=== PATIENT | female | born 2005 | race Caucasian/White ===

== ENCOUNTER 2023-10-19 17:43 | Emergency (ER) | payer OTHER ==
--- NOTE | 2023-10-19 18:44 | ED ---
Fever HPI - General Chief Complaint: Abdominal Pain Stated Complaint: Headache,Nausea,Body ache Time Seen by Provider: 10/19/23 18:11 Source: patient, RN notes reviewed, old records reviewed Mode of arrival: ambulatory Limitations: no limitations - History of Present Illness Initial Comments: This is a 18-year-old female to the ER for evaluation patient has significant swollen throat lymphadenopathy throat pain back pain body aches body pain abdominal pain. She has multiple visits both the primary care and urgent care with viral testing which is all been negative. Patient was contacted for influenza which was negative COVID which is negative RSV which is negative and mono which was negative MD Complaint: fever, malaise, weakness -: days(s) Temperature Source: subjective Context: sick contacts, multiple patients with similar symptoms Associated Symptoms: chills, rigors, myalgias Treatments Prior to Arrival: none - Related Data Previous Rx's Medication Instructions Recorded Amoxic-Pot Clav 875-125Mg 1 tab PO Q12HR #20 tablet 10/19/23 [Augmentin 875-125] Allergies Allergy/AdvReac Type Severity Reaction Status Date / Time No Known Allergies Allergy Verified 10/19/23 18:02 Review of Systems ROS Statement: Those systems with pertinent positive or pertinent negative responses have been documented in the HPI. ROS Other: All systems not noted in ROS Statement are negative. Past Medical History Past Medical History: No Reported History History of Any Multi-Drug Resistant Organisms: None Reported Past Surgical History: No Surgical Hx Reported Smoking Status: Never smoker Past Alcohol Use History: None Reported Past Drug Use History: None Reported General Exam Limitations: no limitations General appearance: alert, in no apparent distress Head exam: Present: atraumatic, normocephalic, normal inspection Eye exam: Present: normal appearance, PERRL, EOMI. Absent: scleral icterus, conjunctival injection, periorbital swelling ENT exam: Present: normal exam, mucous membranes moist Neck exam: Present: normal inspection. Absent: tenderness, meningismus, lymphadenopathy Respiratory exam: Present: normal lung sounds bilaterally. Absent: respiratory distress, wheezes, rales, rhonchi, stridor Cardiovascular Exam: Present: regular rate, normal rhythm, normal heart sounds. Absent: systolic murmur, diastolic murmur, rubs, gallop, clicks GI/Abdominal exam: Present: soft, normal bowel sounds. Absent: distended, tenderness, guarding, rebound, rigid Extremities exam: Present: normal inspection, full ROM, normal capillary refill. Absent: tenderness, pedal edema, joint swelling, calf tenderness Back exam: Present: normal inspection Neurological exam: Present: alert, oriented X3, CN II-XII intact Psychiatric exam: Present: normal affect, normal mood Skin exam: Present: warm, dry, intact, normal color. Absent: rash Course Vital Signs 10/19/23 10/19/23 10/19/23 17:58 19:24 20:48 Temperature 103 F H 102.9 F H 99.2 F Pulse Rate 121 H 109 H Respiratory 18 18 Rate Blood Pressure 125/58 122/79 O2 Sat by Pulse 97 100 Oximetry 10/19/23 10/20/23 10/20/23 21:00 00:00 00:23 Temperature Pulse Rate 85 80 84 Respiratory 16 14 16 Rate Blood Pressure 120/72 106/62 114/57 O2 Sat by Pulse 100 99 95 Oximetry - Reevaluation(s) Reevaluation #1: 10/19/23 23:48 Medical records reviewed Reevaluation #2: 10/19/23 23:48 Patient symptoms improved Reevaluation #3: 10/19/23 23:48 Patient informed of results and questions answered Reevaluation #4: Was pt. sent in by a medical professional or institution ([facility] Soto, TEST LEAD, urgent care, hospital, or assisted...) When possible be specific @ -no Did you speak to anyone other than the patient for history (EMS, parent, family, police, friend...)? What history was obtained from this source @ -no Did you review nursing and triage notes (agree or disagree)? Why? @ -agree Are old charts reviewed (outside hosp., previous admission, EMS record, old EKG, old radiological studies, urgent care reports/EKG's, assisted records)? Rep ort findings @ -yes Differential Diagnosis (chest pain, altered mental status, abdominal pain women, abdominal pain men, vaginal bleeding, weakness, fever, dyspnea, syncope, headache, dizziness, GI bleed, back pain, seizure, CVA, palpatations, mental health, musculoskeletal)? @ -prior EKG interpreted by me (3pts min.). @ -yes X-rays interpreted by me (1pt min.). @ -yes negative for acute disease CT interpreted by me (1pt min.). @ -Yes negative for acute disease U/S interpreted by me (1pt. min.). @ -no What testing was considered but not performed or refused? (CT, X-rays, U/S, labs)? Why? @ -none What meds were considered but not given or refused? Why? @ -none Did you discuss the management of the patient with other professionals (professionals i.e. Dr., PA, TEST LEAD, lab, RT, psych nurse, social work supervisor, music industry intern, teacher, parole hearing officer, showcase maker)? Give summary @ -no Was smoking cessation discussed for >3mins.? @ -no Was critical care preformed (if so, how long)? @ -no Were there social determinants of health that impacted care today? How? (Homelessness, low income, unemployed, alcoholism, drug addiction, transportation, low edu. Level, literacy, decrease access to med. care, skilled nursing, rehab)? @ -none Was there de-escalation of care discussed even if they declined (Discuss DNR or withdrawal of care, Hospice)? DNR status @ -no What co-morbidities impacted this encounter? (DM, HTN, Smoking, COPD, CAD, Cancer, CVA, ARF, Chemo, Hep., AIDS, mental health diagnosis, sleep apnea, morbid obesity)? @ -none Was patient admitted / discharged? Hospital course, mention meds given and route, prescriptions, significant lab abnormalities, going to OR and other pertinent info. @ - 18 female to the ER for evaluation of fever with severe lymphadenopathy, persistent fever with abdominal pain. Patient does have improved symptoms here in the ER with no travel or sick contacts. Patient was placed on antibiotics and can be discharged home Discharge Undiagnosed new problem with uncertain prognosis? @ -no Drug Therapy requiring intensive monitoring for toxicity (Heparin, Nitro, Insulin, Cardizem)? @ -no Were any procedures done? @ -no Diagnosis/symptom? @ -Febrile illness lymphadenopathy Acute, or Chronic, or Acute on Chronic? @ -Acute Uncomplicated (without systemic symptoms) or Complicated (systemic symptoms)? @ -Complicated Side effects of treatment? @ -no Exacerbation, Progression, or Severe Exacerbation? @ -exacerbation Poses a threat to life or bodily function? How? (Chest pain, [place], [place], pneumonia, PE, COPD, DKA, ARF, appy, cholecystitis, CVA, Diverticulitis, Homicidal, Suicidal, threat to staff... and all critical care pts) @ -yes with significant febrile illness Reevaluation #5: Differential Fever: Pneumonia, viral URI, endocarditis, myocarditis, pericarditis, otitis, sinusitis, peritonsillar Abscess, retropharyngeal Abscess, epiglottitis, peritonitis, appendicitis, Renetta cystitis, diverticulitis, hepatitis, colitis, UTI, PID, TOA, pyelonephritis, prostatitis, epididymitis, meningitis, encephalitis, pulmonary embolism, CVA, thyroid storm, pancreatitis, adrenal crisis, cavernous sinus thrombosis, this is not meant to be an all-inclusive list. Medical Decision Making - Medical Decision Making 18 female to the ER for evaluation of fever with severe lymphadenopathy, persistent fever with abdominal pain. Patient does have improved symptoms here in the ER with no travel or sick contacts. Patient was placed on antibiotics and can be discharged home - Lab Data Result diagrams: 10/19/23 18:55 10/19/23 18:55 Lab Results 10/19/23 10/19/23 10/19/23 Range/Units 18:55 18:55 18:55 WBC 7.8 (4.0-11.0) k/uL RBC 4.70 (3.80-5.40) m/uL Hgb 14.5 (11.4-16.0) gm/dL Hct 42.1 (34.0-46.0) % MCV 89.5 (80.0-100.0) fL MCH 30.8 (25.0-35.0) pg MCHC 34.4 (31.0-37.0) g/dL RDW 12.5 (11.5-15.5) % Plt Count 198 (150-450) k/uL MPV 7.6 Neutrophils % 74 % Lymphocytes % 18 % Monocytes % 6 % Eosinophils % 0 % Basophils % 1 % Neutrophils # 5.8 (1.3-7.7) k/uL Lymphocytes # 1.4 (1.0-4.8) k/uL Monocytes # 0.5 (0-1.0) k/uL Eosinophils # 0.0 (0-0.7) k/uL Basophils # 0.0 (0-0.2) k/uL PT 11.5 (10.0-12.5) sec INR 1.1 (<1.2) APTT 28.4 (22.0-30.0) sec Sodium 134 L (137-145) mmol/L Potassium 3.9 (3.5-5.1) mmol/L Chloride 102 (98-107) mmol/L Carbon Dioxide 22 (22-30) mmol/L Anion Gap 10 mmol/L BUN 11 (7-17) mg/dL Creatinine 0.61 (0.52-1.04) mg/dL Est GFR (CKD-EPI)AfAm >90 (>60 ml/min/1.73 sqM) Est GFR (CKD-EPI)NonAf >90 (>60 ml/min/1.73 sqM) Glucose 101 H (74-99) mg/dL Plasma Lactic Acid Lai (0.7-2.0) mmol/L Calcium 9.1 (8.4-10.2) mg/dL Phosphorus 2.5 (2.5-4.5) mg/dL Magnesium 1.9 (1.6-2.3) mg/dL Total Bilirubin 0.5 (0.2-1.3) mg/dL AST 19 (14-36) U/L ALT 12 (4-34) U/L Alkaline Phosphatase 57 (38-126) U/L Troponin I (0.000-0.034) ng/mL C-Reactive Protein 5.8 H (<1.0) mg/dL NT-Pro-B Natriuret Pep 80 pg/mL Total Protein 7.2 (6.3-8.2) g/dL Albumin 4.4 (3.5-5.0) g/dL Amylase 50 (30-110) U/L Urine Color Urine Appearance (Clear) Urine pH (5.0-8.0) Ur Specific [place] (1.001-1.035) Urine Protein (Negative) Urine Glucose (UA) (Negative) Urine Ketones (Negative) Urine Blood (Negative) Urine Nitrite (Negative) Urine Bilirubin (Negative) Urine Urobilinogen (<2.0) mg/dL Ur Leukocyte Esterase (Negative) Urine RBC (0-5) /hpf Urine WBC (0-5) /hpf Ur Squamous Epith Cells (0-4) /hpf Urine Mucus (None) /hpf Heterophile Antibody (Negative) 10/19/23 10/19/23 10/19/23 Range/Units 18:55 18:55 19:00 WBC (4.0-11.0) k/uL RBC (3.80-5.40) m/uL Hgb (11.4-16.0) gm/dL Hct (34.0-46.0) % MCV (80.0-100.0) fL MCH (25.0-35.0) pg MCHC (31.0-37.0) g/dL RDW (11.5-15.5) % Plt Count (150-450) k/uL MPV Neutrophils % % Lymphocytes % % Monocytes % % Eosinophils % % Basophils % % Neutrophils # (1.3-7.7) k/uL Lymphocytes # (1.0-4.8) k/uL Monocytes # (0-1.0) k/uL Eosinophils # (0-0.7) k/uL Basophils # (0-0.2) k/uL PT (10.0-12.5) sec INR (<1.2) APTT (22.0-30.0) sec Sodium (137-145) mmol/L Potassium (3.5-5.1) mmol/L Chloride (98-107) mmol/L Carbon Dioxide (22-30) mmol/L Anion Gap mmol/L BUN (7-17) mg/dL Creatinine (0.52-1.04) mg/dL Est GFR (CKD-EPI)AfAm (>60 ml/min/1.73 sqM) Est GFR (CKD-EPI)NonAf (>60 ml/min/1.73 sqM) Glucose (74-99) mg/dL Plasma Lactic Acid Lai 0.6 L (0.7-2.0) mmol/L Calcium (8.4-10.2) mg/dL Phosphorus (2.5-4.5) mg/dL Magnesium (1.6-2.3) mg/dL Total Bilirubin (0.2-1.3) mg/dL AST (14-36) U/L ALT (4-34) U/L Alkaline Phosphatase (38-126) U/L Troponin I <0.012 (0.000-0.034) ng/mL C-Reactive Protein (<1.0) mg/dL NT-Pro-B Natriuret Pep pg/mL Total Protein (6.3-8.2) g/dL Albumin (3.5-5.0) g/dL Amylase (30-110) U/L Urine Color Urine Appearance (Clear) Urine pH (5.0-8.0) Ur Specific [place] (1.001-1.035) Urine Protein (Negative) Urine Glucose (UA) (Negative) Urine Ketones (Negative) Urine Blood (Negative) Urine Nitrite (Negative) Urine Bilirubin (Negative) Urine Urobilinogen (<2.0) mg/dL Ur Leukocyte Esterase (Negative) Urine RBC (0-5) /hpf Urine WBC (0-5) /hpf Ur Squamous Epith Cells (0-4) /hpf Urine Mucus (None) /hpf Heterophile Antibody Negative (Negative) 10/19/23 Range/Units 20:20 WBC (4.0-11.0) k/uL RBC (3.80-5.40) m/uL Hgb (11.4-16.0) gm/dL Hct (34.0-46.0) % MCV (80.0-100.0) fL MCH (25.0-35.0) pg MCHC (31.0-37.0) g/dL RDW (11.5-15.5) % Plt Count (150-450) k/uL MPV Neutrophils % % Lymphocytes % % Monocytes % % Eosinophils % % Basophils % % Neutrophils # (1.3-7.7) k/uL Lymphocytes # (1.0-4.8) k/uL Monocytes # (0-1.0) k/uL Eosinophils # (0-0.7) k/uL Basophils # (0-0.2) k/uL PT (10.0-12.5) sec INR (<1.2) APTT (22.0-30.0) sec Sodium (137-145) mmol/L Potassium (3.5-5.1) mmol/L Chloride (98-107) mmol/L Carbon Dioxide (22-30) mmol/L Anion Gap mmol/L BUN (7-17) mg/dL Creatinine (0.52-1.04) mg/dL Est GFR (CKD-EPI)AfAm (>60 ml/min/1.73 sqM) Est GFR (CKD-EPI)NonAf (>60 ml/min/1.73 sqM) Glucose (74-99) mg/dL Plasma Lactic Acid Lai (0.7-2.0) mmol/L Calcium (8.4-10.2) mg/dL Phosphorus (2.5-4.5) mg/dL Magnesium (1.6-2.3) mg/dL Total Bilirubin (0.2-1.3) mg/dL AST (14-36) U/L ALT (4-34) U/L Alkaline Phosphatase (38-126) U/L Troponin I (0.000-0.034) ng/mL C-Reactive Protein (<1.0) mg/dL NT-Pro-B Natriuret Pep pg/mL Total Protein (6.3-8.2) g/dL Albumin (3.5-5.0) g/dL Amylase (30-110) U/L Urine Color Colorless Urine Appearance Clear (Clear) Urine pH 6.5 (5.0-8.0) Ur Specific [place] 1.014 (1.001-1.035) Urine Protein Negative (Negative) Urine Glucose (UA) Negative (Negative) Urine Ketones 1+ H (Negative) Urine Blood Moderate H (Negative) Urine Nitrite Negative (Negative) Urine Bilirubin Negative (Negative) Urine Urobilinogen <2.0 (<2.0) mg/dL Ur Leukocyte Esterase Negative (Negative) Urine RBC 1 (0-5) /hpf Urine WBC 2 (0-5) /hpf Ur Squamous Epith Cells 7 H (0-4) /hpf Urine Mucus Rare H (None) /hpf Heterophile Antibody (Negative) - EKG Data -: EKG Interpreted by Me (EKG is sinus 110 SC 135 QRS 94 QTc 366) - Radiology Data Radiology results: report reviewed (Chest x-ray and CT soft tissue neck negative for acute disease CT abdomen pelvis negative for acute disease), image reviewed Disposition Clinical Impression: Abdominal pain, Fever, Lymphadenopathy, Abdominal colic Disposition: ADMITTED IP TO THIS HOSP Condition: Fair Instructions (If sedation given, give patient instructions): Abdominal Pain (ED) Prescriptions: Amoxic-Pot Clav 875-125Mg [Augmentin 875-125] 1 tab PO Q12HR #20 tablet Is patient prescribed a controlled substance at d/c from ED?: No Referrals: Angela Alexander, PAC [REFERRING] - 1-2 days Candelario Shelton MD [STAFF PHYSICIAN] - 1-2 days Time of Disposition: 23:45
[2023-10-19] MEDS: ACETAMINOPHEN IV (For NPO) 1,000 MG in EMPTY BAG 1 BAG IVPB STA (19:03)
[2023-10-19] MEDS: SODIUM CHLORIDE 0.9% 500 ML 500 ML IV STA (19:03)
[2023-10-19] MEDS: SODIUM CHLORIDE 0.9% 1,000 ML IV STA ×2 (19:03→19:06)
[2023-10-19] MEDS: MORPHINE SULFATE 2 MG/ML SYRINGE IVP STA (19:13)
[2023-10-19 19:15] LABS: INR 1.1 (<1.2); Partial Thromboplastin Time 28.4 sec (22.0-30.0); Prothrombin Time 11.5 sec (10.0-12.5)
[2023-10-19] MEDS: IBUPROFEN IV 600 MG in SODIUM CHLORIDE 0.9% 250 ML IV ONE (19:17)
[2023-10-19 19:31] LABS: ALT 12 U/L (4-34); AST 19 U/L (14-36); African American GFR (CKD) >90 (>60 ml/min/1.73 sqM); Albumin 4.4 g/dL (3.5-5.0); Alkaline Phosphatase 57 U/L (38-126); Amylase 50 U/L (30-110); Anion Gap 10 mmol/L; Blood Urea Nitrogen 11 mg/dL (7-17); Calcium 9.1 mg/dL (8.4-10.2); Carbon Dioxide 22 mmol/L (22-30); Chloride 102 mmol/L (98-107); Glucose 101 mg/dL (74-99); Magnesium 1.9 mg/dL (1.6-2.3); Non-African American GFR(CKD) >90 (>60 ml/min/1.73 sqM); Phosphorus 2.5 mg/dL (2.5-4.5); Potassium 3.9 mmol/L (3.5-5.1); Sodium 134 mmol/L (137-145); Total Bilirubin 0.5 mg/dL (0.2-1.3); Total Protein 7.2 g/dL (6.3-8.2)
[2023-10-19 19:38] LABS: NT-Pro-B-Type Natriuretic Pept 80 pg/mL
[2023-10-19 19:43] LABS: Basophils % (A) 1 %; Eosinophils % (A) 0 %; HCT 42.1 % (34.0-46.0); HGB 14.5 gm/dL (11.4-16.0); Lymphocytes # (A) 1.4 k/uL (1.0-4.8); Lymphocytes % (A) 18 %; MCH 30.8 pg (25.0-35.0); MCHC 34.4 g/dL (31.0-37.0); MCV 89.5 fL (80.0-100.0); Mean Platelet Volume 7.6; Monocytes # (A) 0.5 k/uL (0-1.0); Monocytes % (A) 6 %; Neutrophils # (A) 5.8 k/uL (1.3-7.7); Neutrophils % (A) 74 %; Platelet Count 198 k/uL (150-450); RDW 12.5 % (11.5-15.5); WBC 7.8 k/uL (4.0-11.0)
[2023-10-19 20:47] LABS: Appearance,Urine Clear (Clear); Bilirubin,Urine Negative (Negative); Blood,Urine Moderate (Negative); Color,Urine Colorless; Glucose,Urine (UA) Negative (Negative); Ketones,Urine 1+ (Negative); Leukocyte Esterase,Urine Negative (Negative); Mucus,Urine Rare /hpf; Nitrite,Urine Negative (Negative); PH, Urine 6.5 (5.0-8.0); Protein,Urine Negative (Negative); RBC,Urine 1 /hpf (0-5); Specific Gravity,Urine 1.014 (1.001-1.035); Squamous Epithelial Cell,Urine 7 /hpf (0-4); Urobilinogen,Urine <2.0 mg/dL (<2.0); WBC,Urine 2 /hpf (0-5)
[2023-10-19 21:03] LABS: C Reactive Protein 5.8 mg/dL (<1.0)
[2023-10-19 21:11] VITALS: TEMP 99.2
--- NOTE | 2023-10-19 22:23 | XR ---
EXAMINATION TYPE: XR chest 2V DATE OF EXAM: 10/19/2023 7:57 PM CLINICAL INDICATION:Female, 18 years old with history of Weakness; [facility] COMPARISON: None TECHNIQUE: XR chest 2V. Frontal and lateral views of the chest.. FINDINGS: Lines/Tubes/Devices: No indwelling lines are seen. Heart/mediastinum: Heart size is normal. Mediastinum appears normal. Pulmonary vascularity: Not increased, Lungs/Pleura: There is no evidence of pleural effusion, focal consolidation, or pneumothorax. Musculoskeletal: No acute osseous abnormality demonstrated in the limits of the exam. Other findings: None. IMPRESSION: No acute cardiopulmonary abnormality.
--- NOTE | 2023-10-19 23:07 | CT ---
EXAM: CT Angiography Chest With Intravenous Contrast CLINICAL HISTORY: ITS.REASON CT Reason: fever,pain TECHNIQUE: Axial computed tomographic angiography images of the chest with intravenous contrast. CTDI is 16.9 mGy and DLP is 927.5 mGy-cm. This CT exam was performed using one or more of the following dose reduction techniques: automated exposure control, adjustment of the mA and/or kV according to patient size, and/or use of iterative reconstruction technique. MIP reconstructed images were created and reviewed. COMPARISON: No relevant prior studies available. FINDINGS: Pulmonary arteries: Unremarkable. No pulmonary embolism. Aorta: No acute findings. No thoracic aortic aneurysm. Lungs: Unremarkable. No mass. No consolidation. Pleural space: Unremarkable. No significant effusion. No pneumothorax. Heart: Unremarkable. No cardiomegaly. No significant pericardial effusion. No evidence of RV dysfunction. Bones/joints: No acute fracture. No dislocation. Soft tissues: Unremarkable. Lymph nodes: Unremarkable. No enlarged lymph nodes. IMPRESSION: Normal chest CTA. No pulmonary embolism.
--- NOTE | 2023-10-19 23:14 | CT ---
EXAM: CT Abdomen and Pelvis With Intravenous Contrast CLINICAL HISTORY: ITS.REASON CT Reason: fever,pain TECHNIQUE: Axial computed tomography images of the abdomen and pelvis with intravenous contrast. CTDI is 16.9 mGy and DLP is 927.5 mGy-cm. This CT exam was performed using one or more of the following dose reduction techniques: automated exposure control, adjustment of the mA and/or kV according to patient size, and/or use of iterative reconstruction technique. COMPARISON: No relevant prior studies available. FINDINGS: Lung bases: Unremarkable. No mass. No consolidation. ABDOMEN: Liver: Unremarkable. No mass. Gallbladder and bile ducts: Unremarkable. No calcified stones. No ductal dilation. Pancreas: Unremarkable. No mass. No ductal dilation. Spleen: Unremarkable. No splenomegaly. Adrenals: Unremarkable. No mass. Kidneys and ureters: Unremarkable. No solid mass. No hydronephrosis. Stomach and bowel: Unremarkable. No obstruction. No mucosal thickening. PELVIS: Appendix: No findings to suggest acute appendicitis. Bladder: Unremarkable. No mass. Reproductive: Unremarkable as visualized. ABDOMEN and PELVIS: Intraperitoneal space: Unremarkable. No free air. No significant fluid collection. Bones/joints: No acute fracture. No dislocation. Soft tissues: Unremarkable. Vasculature: Unremarkable. No abdominal aortic aneurysm. Lymph nodes: Unremarkable. No enlarged lymph nodes. IMPRESSION: Normal abdomen and pelvis CT.
--- NOTE | 2023-10-19 23:39 | CT ---
EXAM: CT Neck With Intravenous Contrast CLINICAL HISTORY: ITS.REASON CT Reason: fever,pain TECHNIQUE: Axial computed tomography images of the neck with intravenous contrast. CTDI is 16.9 mGy and DLP is 927.5 mGy-cm. This CT exam was performed using one or more of the following dose reduction techniques: automated exposure control, adjustment of the mA and/or kV according to patient size, and/or use of iterative reconstruction technique. COMPARISON: No relevant prior studies available. FINDINGS: This study is limited secondary motion artifact. Oropharynx: Enlarged lingual tonsils. No peritonsillar abscess. Hypopharynx: Unremarkable. Larynx: Unremarkable. Normal epiglottis. Trachea: Unremarkable. Retropharyngeal space: Unremarkable. Submandibular/parotid glands: Unremarkable. Glands are normal in size. Thyroid: Unremarkable. No enlarged or calcified nodules. Bones/joints: No acute fracture. Soft tissues: Prominent thymic remnants. Vasculature: No acute findings. Lymph nodes: Cervical lymphadenopathy. Prominent mediastinal lymph nodes. Lung apices: Unremarkable as visualized. IMPRESSION: Enlarged lingual tonsils and cervical lymphadenopathy. Otherwise, no evidence of acute cervical soft tissue pathology.
[2023-10-20] MEDS: AMOXIC-POT CLAV 875MG STARTER PACK 2 TAB BTL PO STA (00:18)
[2023-10-20] MEDS: ONDANSETRON 4 MG ODT STARTER PACK 2 TAB BTL PO STA (00:18)
[2023-10-20] MEDS: traMADol 50 MG STARTER PACK 3 TAB BTL PO STA (00:18)
[2023-10-20] MEDS: AMOXIC-POT CLAV 875-125MG 1 EACH TAB PO STA (00:19)
[2023-10-20 01:01] VITALS: BP 114/57; PULSE 84; RESP 16
== END 2023-10-20 00:24 | disposition other institution (70) ==
LOC: EC 17:43
DX: R10.84 Generalized abdominal pain (principal); R59.1 Generalized enlarged lymph nodes
CPT/HCPCS: 36415; 93005; 83880; 80053; 82150; 83605; 83735; 84100; 84484; 85025; 85610; 85730; 86140; 86308; 81001; 87040; 71046; 70491; 71275; 74177; 99285; 96365; 96366; 96368; 96375; 96361 ×4; J2270; J0131; S0119; J1741; Q9967

== ENCOUNTER 2024-04-03 09:36 | Emergency (ER) | payer OTHER ==
[2024-04-03 09:44] VITALS: RESP 18
[2024-04-03 10:13] LABS: Basophils # (A) 0.1 k/uL (0-0.2); Basophils % (A) 1 %; Eosinophils # (A) 0.1 k/uL (0-0.7); Eosinophils % (A) 1 %; HGB 13.7 gm/dL (11.4-16.0); Lymphocytes # (A) 2.7 k/uL (1.0-4.8); Lymphocytes % (A) 29 %; MCH 30.7 pg (25.0-35.0); MCHC 33.3 g/dL (31.0-37.0); MCV 92.2 fL (80.0-100.0); Mean Platelet Volume 7.1; Monocytes # (A) 0.5 k/uL (0-1.0); Monocytes % (A) 5 %; Neutrophils # (A) 6.1 k/uL (1.3-7.7); Neutrophils % (A) 64 %; Platelet Count 283 k/uL (150-450); RBC 4.45 m/uL (3.80-5.40); WBC 9.6 k/uL (4.0-11.0)
[2024-04-03 10:24] LABS: ALT 10 U/L (4-34); AST 17 U/L (14-36); African American GFR (CKD) >90 (>60 ml/min/1.73 sqM); Alkaline Phosphatase 51 U/L (38-126); Amylase 45 U/L (30-110); Anion Gap 8 mmol/L; Blood Urea Nitrogen 9 mg/dL (7-17); Calcium 9.8 mg/dL (8.4-10.2); Carbon Dioxide 21 mmol/L (22-30); Chloride 105 mmol/L (98-107); Glucose 103 mg/dL (74-99); Lipase 74 U/L (23-300); Non-African American GFR(CKD) >90 (>60 ml/min/1.73 sqM); Potassium 3.9 mmol/L (3.5-5.1); Sodium 134 mmol/L (137-145); Total Bilirubin 0.6 mg/dL (0.2-1.3); Total Protein 7.7 g/dL (6.3-8.2)
[2024-04-03 10:29] LABS: Appearance,Urine Cloudy (Clear); Bacteria,Urine Rare /hpf; Bilirubin,Urine Negative (Negative); Blood,Urine Negative (Negative); Color,Urine Yellow; Glucose,Urine (UA) Negative (Negative); Ketones,Urine 1+ (Negative); Leukocyte Esterase,Urine Negative (Negative); Mucus,Urine Many /hpf; Nitrite,Urine Negative (Negative); Protein,Urine Trace (Negative); Specific Gravity,Urine 1.025 (1.001-1.035); Squamous Epithelial Cell,Urine 15 /hpf (0-4); Urobilinogen,Urine <2.0 mg/dL (<2.0); WBC,Urine 9 /hpf (0-5)
--- NOTE | 2024-04-03 13:03 | US ---
EXAMINATION TYPE: Transabdominal DATE OF EXAM: 04/03/2024 12:51 PM COMPARISON: NONE CLINICAL INDICATION: Female, 18 years old with history of abd cramping; cramping EXAM PERFORMED: Transabdominal (TA) EXAM MEASUREMENTS: GESTATIONAL AGE / DATING Physician Established: Not yet established Dates by LMP: LMP unknown Dates by First Scan: No previous this is first scan Dates by Current Scan for: (6 weeks/4 days) EDC: 11/23/2024 MATERNAL ANATOMY Uterus: 8.7 x 3.9 x 5.7 cm Right Ovary: 2.9 x 1.5 x 1.7 cm Left Ovary: 3.0 x 1.4 x 1.4 Post CDS / Adnexa: wnl Presence of free fluid: no Presence of corpus luteal cyst: no Presence of subchorionic bleed: no GESTATION / SURVEY CRL: 0.62 cm (6 weeks/4 days) Yolk Sac (normal less than 6mm): 2 mm Heart Rate: 126 bpm Rhythm: Normal IUP: Viable IUP Beta HcG (if available): Not available at this time IMPRESSION: 1. There is an intrauterine measuring 6 weeks 4 days with a heart rate of 126 bpm. [facility], , 04/03/2024 1:01 PM
--- NOTE | 2024-04-03 13:41 | ED ---
Abdominal Pain HPI - General Chief Complaint: Abdominal Pain Stated Complaint: Abdominal Pain Time Seen by Provider: 04/03/24 13:39 Source: patient, RN notes reviewed Mode of arrival: ambulatory Limitations: no limitations - History of Present Illness Initial Comments: 18-year-old female presented to the ER with a chief complaint of abdominal cramping. Patient states for the past 3 to 4 days she has been experiencing a lower abdominal cramping. She does state her periods are irregular. She does report light spotting on the seventh and eighth of this month. She has tried [id number] Tylenol for symptom control without relief. Patient denies any vaginal bleeding or discharge. Reports mild nausea denies vomiting. No fevers or chills, chest pain, shortness of breath, urinary complaints or peripheral edema. - Related Data Previous Rx's Medication Instructions Recorded Amoxic-Pot Clav 875-125Mg 1 tab PO Q12HR #20 tablet 10/19/23 [Augmentin 875-125] Multivit No.42/Iron/Folate/Dha 1 each PO DAILY #30 cap 04/03/24 [Nestabs One Softgel] Allergies Allergy/AdvReac Type Severity Reaction Status Date / Time No Known Allergies Allergy Verified 04/03/24 09:44 Review of Systems ROS Statement: Those systems with pertinent positive or pertinent negative responses have been documented in the HPI. ROS Other: All systems not noted in ROS Statement are negative. Past Medical History Past Medical History: No Reported History History of Any Multi-Drug Resistant Organisms: None Reported Past Surgical History: No Surgical Hx Reported Smoking Status: Never smoker Past Alcohol Use History: None Reported Past Drug Use History: None Reported General Exam Limitations: no limitations General appearance: alert, in no apparent distress Respiratory exam: Present: normal lung sounds bilaterally. Absent: respiratory distress, wheezes, rales, rhonchi, stridor Cardiovascular Exam: Present: regular rate, normal rhythm, normal heart sounds. Absent: systolic murmur, diastolic murmur, rubs, gallop, clicks GI/Abdominal exam: Present: soft, tenderness (Lower abdomen), normal bowel natacha nds Neurological exam: Present: alert, oriented X3, CN II-XII intact Skin exam: Present: warm, dry, intact, normal color. Absent: rash Course Vital Signs 04/03/24 04/03/24 04/03/24 09:42 13:33 13:59 Temperature 98.2 F 98.1 F 98.2 F Pulse Rate 128 H 76 72 Respiratory 18 18 18 Rate Blood Pressure 136/75 136/76 140/76 O2 Sat by Pulse 98 99 99 Oximetry Medical Decision Making - Medical Decision Making Was pt. sent in by a medical professional or institution (, [facility], E COMMERCE SPECIALIST, urgent care, hospital, or [place] health [place] facility...) When possible be specific @ -No Did you speak to anyone other than the patient for history (EMS, parent, family, police, friend...)? What history was obtained from this source @ -No Did you review nursing and triage notes (agree or disagree)? Why? @ -I reviewed and agree with nursing and triage notes Were old charts reviewed (outside hosp., previous admission, EMS record, old EKG, old radiological studies, urgent care reports/EKG's, [place] health care facility records)? Report findings @ -No old charts were reviewed Differential Diagnosis (chest pain, altered mental status, abdominal pain women, abdominal pain men, vaginal bleeding, weakness, fever, dyspnea, syncope, headache, dizziness, GI bleed, back pain, seizure, CVA, palpatations, mental health, musculoskeletal)? @ -Differential Abdominal Pain Women: Appendicitis, Cholecystitis, diverticulosis, ischemic bowel, pancreatitis, hepatitis, UTI, gastroenteritis, AAA, incarcerated hernia, bowel obstruction, constipation, inflammatory bowel, hepatitis, peptic ulcer disease, splenic infarction, perforated viscus, vulvitis, ovarian torsion, PID, kidney stone, placenta abruption, this is not meant to be an all-inclusive list EKG interpreted by me (3pts min.). @ -None done X-rays interpreted by me (1pt min.). @ -None done CT interpreted by me (1pt min.). @ -None done U/S interpreted by me (1pt. min.). @ - ultrasound showing an IUP measuring 6 weeks 4 days with a heart rate of 126 bpm. What testing was considered but not performed or refused? (CT, X-rays, U/S, labs)? Why? @ -None What meds were considered but not given or refused? Why? @ -None Did you discuss the management of the patient with other professionals (professionals i.e. , NERY, E COMMERCE SPECIALIST, lab, RT, psych nurse, case management social worker, stocklayer, teacher, home school liaison officer, upper caser)? Give summary @ -No Was smoking cessation discussed for >3mins.? @ -No Was critical care preformed (if so, how long)? @ -No Were there social determinants of health that impacted care today? How? (Pita elessness, low income, unemployed, alcoholism, drug addiction, transportation, low edu. Level, literacy, decrease access to med. care, long term, rehab)? @ -No Was there de-escalation of care discussed even if they declined (Discuss DNR or withdrawal of care, Hospice)? DNR status @ -No What co-morbidities impacted this encounter? (DM, HTN, Smoking, COPD, CAD, Cancer, CVA, ARF, Chemo, Hep., AIDS, mental health diagnosis, sleep apnea, morbid obesity)? @ - Was patient admitted / discharged? Hospital course, mention meds given and route, prescriptions, significant lab abnormalities, going to OR and other pertinent info. @ -Discharge. 18-year-old female presented to ER with a chief complaint of abdominal cramping. Orders initially ordered by triage. History and physical exam completed. Vitals within normal limits. Upon my evaluation, patient in no signs of acute distress and nontoxic-appearing. Exam remarkable for lower abdominal tenderness. Normal bowel sounds with no rebound or guarding. Laboratory studies obtained unremarkable. Serum hCG 30,595.8. Urinalysis contaminated with 15 epithelial cells and 9 WBCs. ultrasound obtained showing IUP measuring 6 weeks 4 days with a heart rate of 126 bpm. Blood type A+, rhogam not indicated. Patient refused analgesic medications. Upon my reevaluation patient resting comfortably in exam room no signs of acute distress. Results discussed with patient, all questions answered. Advise close follow-up with [facility], referral given. prescribed. Strict return parameters discussed. Patient discharged in stable condition. Patient verbally expressed understanding and agreement with care plan. Case discussed with ED attending, Dr. Ward. Undiagnosed new problem with uncertain prognosis? @ -No Drug Therapy requiring intensive monitoring for toxicity (Heparin, Nitro, Insulin, Cardizem)? @ -No Were any procedures done? @ -No Diagnosis/symptom? @ -/abdominal pain Acute, or Chronic, or Acute on Chronic? @ -Acute Uncomplicated (without systemic symptoms) or Complicated (systemic symptoms)? @ -Uncomplicated Side effects of treatment? @ -No Exacerbation, Progression, or Severe Exacerbation? @ -No Poses a threat to life or bodily function? How? (Chest pain, [place], [place], pneumonia, PE, COPD, DKA, ARF, appy, cholecystitis, CVA, Diverticulitis, Homicidal, Suicidal, threat to staff... and all critical care pts) @ -No - Lab Data Result diagrams: 04/03/24 09:49 04/03/24 09:49 Lab Results 04/03/24 04/03/24 04/03/24 Range/Units 09:49 09:49 09:49 WBC 9.6 (4.0-11.0) k/uL RBC 4.45 (3.80-5.40) m/uL Hgb 13.7 (11.4-16.0) gm/dL Hct 41.0 (34.0-46.0) % MCV 92.2 (80.0-100.0) fL MCH 30.7 (25.0-35.0) pg MCHC 33.3 (31.0-37.0) g/dL RDW 12.0 (11.5-15.5) % Plt Count 283 (150-450) k/uL MPV 7.1 Neutrophils % 64 % Lymphocytes % 29 % Monocytes % 5 % Eosinophils % 1 % Basophils % 1 % Neutrophils # 6.1 (1.3-7.7) k/uL Lymphocytes # 2.7 (1.0-4.8) k/uL Monocytes # 0.5 (0-1.0) k/uL Eosinophils # 0.1 (0-0.7) k/uL Basophils # 0.1 (0-0.2) k/uL Sodium 134 L (137-145) mmol/L Potassium 3.9 (3.5-5.1) mmol/L Chloride 105 (98-107) mmol/L Carbon Dioxide 21 L (22-30) mmol/L Anion Gap 8 mmol/L BUN 9 (7-17) mg/dL Creatinine 0.58 (0.52-1.04) mg/dL Est GFR (CKD-EPI)AfAm >90 (>60 ml/min/1.73 sqM) Est GFR (CKD-EPI)NonAf >90 (>60 ml/min/1.73 sqM) Glucose 103 H (74-99) mg/dL Calcium 9.8 (8.4-10.2) mg/dL Total Bilirubin 0.6 (0.2-1.3) mg/dL AST 17 (14-36) U/L ALT 10 (4-34) U/L Alkaline Phosphatase 51 (38-126) U/L Total Protein 7.7 (6.3-8.2) g/dL Albumin 5.0 (3.5-5.0) g/dL Amylase 45 (30-110) U/L Lipase 74 (23-300) U/L HCG, Quant mIU/mL Urine Color Yellow Urine Appearance Cloudy H (Clear) Urine pH 6.0 (5.0-8.0) Ur Specific [place] 1.025 (1.001-1.035) Urine Protein Trace H (Negative) Urine Glucose (UA) Negative (Negative) Urine Ketones 1+ H (Negative) Urine Blood Negative (Negative) Urine Nitrite Negative (Negative) Urine Bilirubin Negative (Negative) Urine Urobilinogen <2.0 (<2.0) mg/dL Ur Leukocyte Esterase Negative (Negative) Urine WBC 9 H (0-5) /hpf Ur Squamous Epith Cells 15 H (0-4) /hpf Urine Bacteria Rare H (None) /hpf Urine Mucus Many H (None) /hpf Urine HCG, Qual (Not Detectd) Blood Type Blood Type Recheck Bld Type Recheck Status 04/03/24 04/03/24 04/03/24 Range/Units 09:49 12:01 12:01 WBC (4.0-11.0) k/uL RBC (3.80-5.40) m/uL Hgb (11.4-16.0) gm/dL Hct (34.0-46.0) % MCV (80.0-100.0) fL MCH (25.0-35.0) pg MCHC (31.0-37.0) g/dL RDW (11.5-15.5) % Plt Count (150-450) k/uL MPV Neutrophils % % Lymphocytes % % Monocytes % % Eosinophils % % Basophils % % Neutrophils # (1.3-7.7) k/uL Lymphocytes # (1.0-4.8) k/uL Monocytes # (0-1.0) k/uL Eosinophils # (0-0.7) k/uL Basophils # (0-0.2) k/uL Sodium (137-145) mmol/L Potassium (3.5-5.1) mmol/L Chloride (98-107) mmol/L Carbon Dioxide (22-30) mmol/L Anion Gap mmol/L BUN (7-17) mg/dL Creatinine (0.52-1.04) mg/dL Est GFR (CKD-EPI)AfAm (>60 ml/min/1.73 sqM) Est GFR (CKD-EPI)NonAf (>60 ml/min/1.73 sqM) Glucose (74-99) mg/dL Calcium (8.4-10.2) mg/dL Total Bilirubin (0.2-1.3) mg/dL AST (14-36) U/L ALT (4-34) U/L Alkaline Phosphatase (38-126) U/L Total Protein (6.3-8.2) g/dL Albumin (3.5-5.0) g/dL Amylase (30-110) U/L Lipase (23-300) U/L HCG, Quant 55687.8 mIU/mL Urine Color Urine Appearance (Clear) Urine pH (5.0-8.0) Ur Specific [place] (1.001-1.035) Urine Protein (Negative) Urine Glucose (UA) (Negative) Urine Ketones (Negative) Urine Blood (Negative) Urine Nitrite (Negative) Urine Bilirubin (Negative) Urine Urobilinogen (<2.0) mg/dL Ur Leukocyte Esterase (Negative) Urine WBC (0-5) /hpf Ur Squamous Epith Cells (0-4) /hpf Urine Bacteria (None) /hpf Urine Mucus (None) /hpf Urine HCG, Qual Detected (Not Detectd) Blood Type A Positive Blood Type Recheck No Previous Record Bld Type Recheck Status ABR ONLY - Radiology Data Radiology results: report reviewed, image reviewed Disposition Clinical Impression: , Abdominal pain affecting Disposition: HOME SELF-CARE Condition: Stable Instructions (If sedation given, give patient instructions): Abdominal Pain in (ED) Additional Instructions: Please follow-up with [facility]. Return to the ER for any new or worsening concer ns. Prescriptions: Multivit No.42/Iron/Folate/Dha [Nestabs One Softgel] 1 each PO DAILY #30 cap Is patient prescribed a controlled substance at d/c from ED?: No Referrals: Ngoc Estrada MD [Primary Care Provider] - 1-2 days Bailey Feng MD [STAFF PHYSICIAN] - 1-2 days Time of Disposition: 13:41
[2024-04-03 14:01] VITALS: BP 140/76; PULSE 72; TEMP 98.2
== END 2024-04-03 14:49 | disposition home or self-care (01) ==
LOC: EC 09:36
CPT/HCPCS: 36415; 76801; 80053; 81001; 81025; 82150; 83690; 84702; 85025; 86900; 86901; 99284

== ENCOUNTER 2024-05-04 08:45 | Emergency (ER) | payer OTHER ==
[2024-05-04 09:09] VITALS: RESP 18; TEMP 98.4
[2024-05-04] MEDS: METOCLOPRAMIDE 5 MG/ML 2 ML VIAL IVP STA (10:35)
[2024-05-04] MEDS: SODIUM CHLORIDE 0.9% 2,000 ML IV STA (10:36)
[2024-05-04 10:37] LABS: ALT 19 U/L (4-34); African American GFR (CKD) >90 (>60 ml/min/1.73 sqM); Albumin 5.3 g/dL (3.5-5.0); Anion Gap 14 mmol/L; Blood Urea Nitrogen 9 mg/dL (7-17); Calcium 9.9 mg/dL (8.4-10.2); Carbon Dioxide 18 mmol/L (22-30); Chloride 105 mmol/L (98-107); Glucose 114 mg/dL (74-99); Lipase 81 U/L (23-300); Non-African American GFR(CKD) >90 (>60 ml/min/1.73 sqM); Sodium 137 mmol/L (137-145); Total Bilirubin 1.4 mg/dL (0.2-1.3)
[2024-05-04 10:40] LABS: Basophils % (A) 0 %; Eosinophils # (A) 0.1 k/uL (0-0.7); Eosinophils % (A) 1 %; HCT 42.8 % (34.0-46.0); HGB 15.3 gm/dL (11.4-16.0); Lymphocytes # (A) 1.2 k/uL (1.0-4.8); Lymphocytes % (A) 11 %; MCH 31.7 pg (25.0-35.0); MCHC 35.9 g/dL (31.0-37.0); MCV 88.4 fL (80.0-100.0); Mean Platelet Volume 8.2; Monocytes # (A) 0.3 k/uL (0-1.0); Monocytes % (A) 3 %; Neutrophils # (A) 9.5 k/uL (1.3-7.7); Neutrophils % (A) 86 %; Platelet Count 281 k/uL (150-450); RBC 4.84 m/uL (3.80-5.40); RDW 12.7 % (11.5-15.5); WBC 11.1 k/uL (4.0-11.0)
[2024-05-04 10:48] LABS: Magnesium 1.8 mg/dL (1.6-2.3); Potassium 4.3 mmol/L (3.5-5.1)
[2024-05-04 10:49] LABS: AST 45 U/L (14-36); Alkaline Phosphatase 41 U/L (38-126)
--- NOTE | 2024-05-04 11:48 | ED ---
Nausea/Vomiting/Diarrhea HPI - General Chief complaint: Nausea/Vomiting/Diarrhea Stated complaint: 11wks preg/Vomiting Time Seen by Provider: 05/04/24 09:00 Source: patient, RN notes reviewed Mode of arrival: ambulatory Limitations: no limitations - History of Present Illness Initial comments: 18-year-old female presents emergency department with chief complaint of nausea vomiting . Patient states she is G1, states she is around [address] Yumi Alcantar. Patient states that she has had persistent nausea vomiting states that she was on Zofran was seen at the hospital in which she states she was admitted for hydration she was given promethazine states it does not help much. She states it upsets her stomach she denies any chest pain shortness of breath she does complain of epigastric pain no vaginal bleeding or vaginal discharge. - Related Data Previous Rx's Medication Instructions Recorded Amoxic-Pot Clav 875-125Mg 1 tab PO Q12HR #20 tablet 10/19/23 [Augmentin 875-125] Multivit No.42/Iron/Folate/Dha 1 each PO DAILY #30 cap 04/03/24 [Nestabs One Softgel] Metoclopramide [Reglan] 10 mg PO TID PRN #15 tab 05/04/24 Allergies Allergy/AdvReac Type Severity Reaction Status Date / Time No Known Allergies Allergy Verified 05/04/24 09:05 Review of Systems ROS Statement: Those systems with pertinent positive or pertinent negative responses have been documented in the HPI. ROS Other: All systems not noted in ROS Statement are negative. Past Medical History Past Medical History: No Reported History History of Any Multi-Drug Resistant Organisms: None Reported Past Surgical History: No Surgical Hx Reported Past Psychological History: No Psychological Hx Reported Smoking Status: Never smoker Past Alcohol Use History: None Reported Past Drug Use History: None Reported General Exam Limitations: no limitations General appearance: alert, in no apparent distress Head exam: Present: atraumatic, normocephalic, normal inspection Neck exam: Present: normal inspection, full ROM. Absent: tenderness, meningismus, lymphadenopathy Respiratory exam: Present: normal lung sounds bilaterally. Absent: respiratory distress, wheezes, rales, rhonchi, stridor Cardiovascular Exam: Present: regular rate, normal rhythm, normal heart sounds. Absent: systolic murmur, diastolic murmur, rubs, gallop, clicks GI/Abdominal exam: Present: soft, tenderness (epigastric), normal bowel sounds. Absent: distended, guarding, rebound, rigid Course Vital Signs 05/04/24 05/04/24 09:06 14:06 Temperature 98.4 F Pulse Rate 75 79 Respiratory 18 18 Rate Blood Pressure 135/86 106/62 O2 Sat by Pulse 99 98 Oximetry Medical Decision Making - Medical Decision Making Was pt. sent in by a medical professional or institution (, PA, [facility], urgent care, hospital, or long term...) When possible be specific @ -No Did you speak to anyone other than the patient for history (EMS, parent, family, police, friend...)? What history was obtained from this source @ -No Did you review nursing and triage notes (agree or disagree)? Why? @ -I reviewed and agree with nursing and triage notes Were old charts reviewed (outside hosp., previous admission, EMS record, old EKG, old radiological studies, urgent care reports/EKG's, long term records)? Report findings @ -No old charts were reviewed Differential Diagnosis (chest pain, altered mental status, abdominal pain women, abdominal pain men, vaginal bleeding, weakness, fever, dyspnea, syncope, headache, dizziness, GI bleed, back pain, seizure, CVA, palpatations, mental health, musculoskeletal)? @ -Differential Abdominal Pain Women: Appendicitis, Cholecystitis, diverticulosis, ischemic bowel, pancreatitis, hepatitis, UTI, gastroenteritis, AAA, incarcerated hernia, bowel obstruction, constipation, inflammatory bowel, hepatitis, peptic ulcer disease, splenic infarction, perforated viscus, vulvitis, ovarian torsion, PID, kidney stone, placenta abruption, this is not meant to be an all-inclusive list EKG interpreted by me (3pts min.). @ -None X-rays interpreted by me (1pt min.). @ -None done CT interpreted by me (1pt min.). @ -None done U/S interpreted by me (1pt. min.). @ -None done What testing was considered but not performed or refused? (CT, X-rays, U/S, labs)? Why? @ -None What meds were considered but not given or refused? Why? @ -None Did you discuss the management of the patient with other professionals (professionals i.e. , PA, SHANK CEMENTER HAND, lab, RT, psych nurse, social media marketer, foreign student adviser, teacher, space officer, adult protective caseworker)? Give summary @ -No Was smoking cessation discussed for >3mins.? @ -No Was critical care preformed (if so, how long)? @ -No Were there social determinants of health that impacted care today? How? (Homelessness, low income, unemployed, alcoholism, drug addiction, transportat ion, low edu. Level, literacy, decrease access to med. care, detention, rehab)? @ -No Was there de-escalation of care discussed even if they declined (Discuss DNR or withdrawal of care, Hospice)? DNR status @ -No What co-morbidities impacted this encounter? (DM, HTN, Smoking, COPD, CAD, Cancer, CVA, ARF, Chemo, Hep., AIDS, mental health diagnosis, sleep apnea, morbid obesity)? @ -None Was patient admitted / discharged? Hospital course, mention meds given and route, prescriptions, significant lab abnormalities, going to OR and other pertinent info. @ -Discharge patient was hydrated, given antiemetics feels greatly improved. Patient did have moderate dehydration but is tolerating oral intake patient will follow-up with [facility]. Undiagnosed new problem with uncertain prognosis? @ -No Drug Therapy requiring intensive monitoring for toxicity (Heparin, Nitro, Insulin, Cardizem)? @ -No Were any procedures done? @ -No Diagnosis/symptom? @ -Nausea vomiting Acute, or Chronic, or Acute on Chronic? @ -Acute Uncomplicated (without systemic symptoms) or Complicated (systemic symptoms)? @ -Uncomplicated Side effects of treatment? @ -No Exacerbation, Progression, or Severe Exacerbation? @ -No Poses a threat to life or bodily function? How? (Chest pain, [place], [place], pneumonia, PE, COPD, DKA, ARF, appy, cholecystitis, CVA, Diverticulitis, Homicidal, Suicidal, threat to staff... and all critical care pts) @ -No - Lab Data Result diagrams: 05/04/24 10:05/04/24 10:06 Lab Results 05/04/24 05/04/24 05/04/24 Range/Units 10: 10:06 11:29 WBC 11.1 H (4.0-11.0) k/uL RBC 4.84 (3.80-5.40) m/uL Hgb 15.3 (11.4-16.0) gm/dL Hct 42.8 (34.0-46.0) % MCV 88.4 (80.0-100.0) fL MCH 31.7 (25.0-35.0) pg MCHC 35.9 (31.0-37.0) g/dL RDW 12.7 (11.5-15.5) % Plt Count 281 (150-450) k/uL MPV 8.2 Neutrophils % 86 % Lymphocytes % 11 % Monocytes % 3 % Eosinophils % 1 % Basophils % 0 % Neutrophils # 9.5 H (1.3-7.7) k/uL Lymphocytes # 1.2 (1.0-4.8) k/uL Monocytes # 0.3 (0-1.0) k/uL Eosinophils # 0.1 (0-0.7) k/uL Basophils # 0.0 (0-0.2) k/uL Sodium 137 (137-145) mmol/L Potassium 4.3 (3.5-5.1) mmol/L Chloride 105 (98-107) mmol/L Carbon Dioxide 18 L (22-30) mmol/L Anion Gap 14 mmol/L BUN 9 (7-17) mg/dL Creatinine 0.45 L (0.52-1.04) mg/dL Est GFR (CKD-EPI)AfAm >90 (>60 ml/min/1.73 sqM) Est GFR (CKD-EPI)NonAf >90 (>60 ml/min/1.73 sqM) Glucose 114 H (74-99) mg/dL Calcium 9.9 (8.4-10.2) mg/dL Magnesium 1.8 (1.6-2.3) mg/dL Total Bilirubin 1.4 H (0.2-1.3) mg/dL AST 45 H (14-36) U/L ALT 19 (4-34) U/L Alkaline Phosphatase 41 (38-126) U/L Total Protein 9.0 H (6.3-8.2) g/dL Albumin 5.3 H (3.5-5.0) g/dL Lipase 81 (23-300) U/L Urine Color Yellow Urine Appearance Cloudy H (Clear) Urine pH 5.5 (5.0-8.0) Ur Specific [place] 1.030 (1.001-1.035) Urine Protein 1+ H (Negative) Urine Glucose (UA) Negative (Negative) Urine Ketones 4+ H (Negative) Urine Blood Negative (Negative) Urine Nitrite Negative (Negative) Urine Bilirubin Negative (Negative) Urine Urobilinogen <2.0 (<2.0) mg/dL Ur Leukocyte Esterase Negative (Negative) Urine RBC 1 (0-5) /hpf Urine WBC 3 (0-5) /hpf Ur Squamous Epith Cells 16 H (0-4) /hpf Urine Mucus Many H (None) /hpf Disposition Clinical Impression: Nausea/vomiting in Disposition: HOME SELF-CARE Condition: Stable Instructions (If sedation given, give patient instructions): Nausea and Vomi ting in (ED) Additional Instructions: Please return to the Emergency Department if symptoms worsen or any other concerns. Prescriptions: Metoclopramide [Reglan] 10 mg PO TID PRN #15 tab PRN Reason: Nausea Is patient prescribed a controlled substance at d/c from ED?: No Referrals: Ngoc Estrada MD [Primary Care Provider] - 1-2 days Time of Disposition: 13:45
[2024-05-04 12:06] LABS: Appearance,Urine Cloudy (Clear); Bilirubin,Urine Negative (Negative); Blood,Urine Negative (Negative); Color,Urine Yellow; Glucose,Urine (UA) Negative (Negative); Ketones,Urine 4+ (Negative); Leukocyte Esterase,Urine Negative (Negative); Mucus,Urine Many /hpf; Nitrite,Urine Negative (Negative); PH, Urine 5.5 (5.0-8.0); Protein,Urine 1+ (Negative); RBC,Urine 1 /hpf (0-5); Squamous Epithelial Cell,Urine 16 /hpf (0-4); Urobilinogen,Urine <2.0 mg/dL (<2.0); WBC,Urine 3 /hpf (0-5)
[2024-05-04] MEDS: ONDANSETRON 4 MG/2 ML VIAL IVP STA (12:49)
[2024-05-04 14:07] VITALS: BP 106/62; PULSE 79
== END 2024-05-04 14:08 | disposition home or self-care (01) ==
LOC: EC 08:45
DX: O21.9 Vomiting of pregnancy, unspecified (principal); Z3A.11 11 weeks gestation of pregnancy
CPT/HCPCS: 99284; 96374; 96375; 96361 ×2; 36415; 80053; 83690; 83735; 85025; 81001; J2765; J2405

== ENCOUNTER 2024-05-11 00:46 | Emergency (ER) | payer OTHER ==
--- NOTE | 2024-05-11 01:54 | US ---
EXAMINATION TYPE: Transabdominal DATE OF EXAM: 05/11/2024 1:45 AM COMPARISON: 04/03/24 CLINICAL INDICATION: Female, 18 years old with history of pelvic pain, 12 weeks preg; Patient states n/v and cramping TECHNIQUE: Transabdominal (TA) with grayscale and color Doppler imaging including first trimester pre gnancy. FINDINGS: EXAM MEASUREMENTS: GESTATIONAL AGE / DATING Physician Established: (12weeks/0 days) EDC: 11/23/2024 Dates by First Scan: (12weeks/0 days) EDC: 11/23/2024 Dates by Current Scan for: (11weeks/6 days) EDC: 11/24/2024 MATERNAL ANATOMY Uterus: wnl Right Ovary: wnl Left Ovary: not visualized Post CDS / Adnexa: wnl Presence of free fluid: no Presence of corpus luteal cyst: no Presence of subchorionic bleed: no GESTATION / SURVEY CRL: 5.02cm 11 wks 6 days GS morphology: Normal Heart Rate: 172 bpm Rhythm: normal IUP: Viable IUP Age Appropriate Anatomy Limbs: seen Calvarium: seen Date of LMP: Unsure of LMP Beta HcG (if available): Not available at this time Single live intrauterine gestation is redemonstrated. Interval satisfactory growth progression noted. No complication is present. IMPRESSION: As above. [facility], , 05/11/2024 1:52 AM
[2024-05-11] MEDS: METOCLOPRAMIDE 5 MG/ML 2 ML VIAL IVP STA (01:58)
[2024-05-11] MEDS: SODIUM CHLORIDE 0.9% 2,000 ML IV STA (01:58)
[2024-05-11 02:18] LABS: ALT 24 U/L (4-34); AST 34 U/L (14-36); African American GFR (CKD) >90 (>60 ml/min/1.73 sqM); Alkaline Phosphatase 38 U/L (38-126); Anion Gap 12 mmol/L; Blood Urea Nitrogen 10 mg/dL (7-17); Calcium 9.8 mg/dL (8.4-10.2); Carbon Dioxide 21 mmol/L (22-30); Chloride 100 mmol/L (98-107); Glucose 112 mg/dL (74-99); Lipase 73 U/L (23-300); Non-African American GFR(CKD) >90 (>60 ml/min/1.73 sqM); Potassium 3.6 mmol/L (3.5-5.1); Sodium 133 mmol/L (137-145); Total Protein 8.3 g/dL (6.3-8.2)
[2024-05-11 03:41] LABS: Appearance,Urine Cloudy (Clear); Bacteria,Urine Rare /hpf; Bilirubin,Urine Negative (Negative); Blood,Urine Negative (Negative); Color,Urine Light Red; Glucose,Urine (UA) Trace (Negative); Ketones,Urine 4+ (Negative); Leukocyte Esterase,Urine Negative (Negative); Mucus,Urine Many /hpf; Nitrite,Urine Negative (Negative); Protein,Urine 1+ (Negative); RBC,Urine 1 /hpf (0-5); Specific Gravity,Urine 1.033 (1.001-1.035); Squamous Epithelial Cell,Urine 7 /hpf (0-4); WBC,Urine 5 /hpf (0-5)
[2024-05-11 03:56] LABS: Basophils % (A) 0 %; Eosinophils % (A) 0 %; HCT 37.9 % (34.0-46.0); HGB 13.3 gm/dL (11.4-16.0); Lymphocytes # (A) 1.7 k/uL (1.0-4.8); Lymphocytes % (A) 15 %; MCH 31.2 pg (25.0-35.0); MCHC 35.2 g/dL (31.0-37.0); MCV 88.9 fL (80.0-100.0); Mean Platelet Volume 7.4; Monocytes # (A) 0.5 k/uL (0-1.0); Monocytes % (A) 5 %; Neutrophils # (A) 9.1 k/uL (1.3-7.7); Neutrophils % (A) 80 %; Platelet Count 271 k/uL (150-450); RBC 4.26 m/uL (3.80-5.40); RDW 12.5 % (11.5-15.5); WBC 11.4 k/uL (4.0-11.0)
--- NOTE | 2024-05-11 05:13 | ED ---
Nausea/Vomiting/Diarrhea HPI - General Chief complaint: Nausea/Vomiting/Diarrhea Stated complaint: NVD, 12 weeks preg. Time Seen by Provider: 05/11/24 01:08 Source: patient Mode of arrival: ambulatory Limitations: no limitations - History of Present Illness Initial comments: 18-year-old female presenting with chief complaint of nausea and vomiting in . Patient is currently 12 weeks and currently follows with Dr. Salcido. She states that this has been an ongoing issue for the past 4 weeks. She has been taking Reglan at home but it was not helping tonight. She is having some lower abdominal cramping, no vaginal bleeding. No hematic emesis or hematochezia. No fevers or chills. - Related Data Previous Rx's Medication Instructions Recorded Amoxic-Pot Clav 875-125Mg 1 tab PO Q12HR #20 tablet 10/19/23 [Augmentin 875-125] Multivit No.42/Iron/Folate/Dha 1 each PO DAILY #30 cap 04/03/24 [Nestabs One Softgel] Metoclopramide [Reglan] 10 mg PO TID PRN #15 tab 05/04/24 Ondansetron Odt [Zofran Odt] 4 mg PO Q8HR PRN #20 tab 05/11/24 Allergies Allergy/AdvReac Type Severity Reaction Status Date / Time No Known Allergies Allergy Verified 05/13/24 18:48 Review of Systems ROS Statement: Those systems with pertinent positive or pertinent negative responses have been documented in the HPI. ROS Other: All systems not noted in ROS Statement are negative. Past Medical History Past Medical History: No Reported History History of Any Multi-Drug Resistant Organisms: None Reported Past Surgical History: No Surgical Hx Reported Past Psychological History: No Psychological Hx Reported Smoking Status: Never smoker Past Alcohol Use History: None Reported Past Drug Use History: None Reported General Exam Limitations: no limitations General appearance: alert, in no apparent distress Head exam: Present: atraumatic, normocephalic, normal inspection Eye exam: Present: normal appearance, EOMI Neck exam: Present: normal inspection. Absent: meningismus Respiratory exam: Present: normal lung sounds bilaterally. Absent: respiratory distress, wheezes, rales, rhonchi, stridor Cardiovascular Exam: Present: normal rhythm, tachycardia, normal heart sounds. Absent: systolic murmur, diastolic murmur, rubs, gallop, clicks GI/Abdominal exam: Present: soft. Absent: distended, tenderness, guarding, rebound, rigid Neurological exam: Present: alert, oriented X3 Psychiatric exam: Present: normal affect, normal mood Skin exam: Present: warm, dry Course Vital Signs 05/11/24 05/11/24 00:51 05:22 Temperature 97.7 F 97.6 F Pulse Rate 121 H 72 Respiratory 16 18 Rate Blood Pressure 123/83 117/96 O2 Sat by Pulse 96 99 Oximetry Medical Decision Making - Medical Decision Making Was pt. sent in by a medical professional or institution (, PA, RIVETING MACHINE OPERATOR AUTOMATIC, urgent care, hospital, or senior care...) When possible be specific @ -No Did you speak to anyone other than the patient for history (EMS, parent, family, police, friend...)? What history was obtained from this source @ -No Did you review nursing and triage notes (agree or disagree)? Why? @ -I reviewed and agree with nursing and triage notes Were old charts reviewed (outside hosp., previous admission, EMS record, old EKG, old radiological studies, urgent care reports/EKG's, senior care records)? Report findings @ -No old charts were reviewed Differential Diagnosis (chest pain, altered mental status, abdominal pain women, abdominal pain men, vaginal bleeding, weakness, fever, dyspnea, syncope, he adache, dizziness, GI bleed, back pain, seizure, CVA, palpatations, mental health, musculoskeletal)? @ -Differential includes hyperemesis gravidarum, nausea vomiting in , appendicitis, cholecystitis, pancreatitis, this is not an all-inclusive list EKG interpreted by me (3pts min.). @ -As above X-rays interpreted by me (1pt min.). @ -None done CT interpreted by me (1pt min.). @ -None done U/S interpreted by me (1pt. min.). @ -Ultrasound shows single live intrauterine gestation redemonstrated. Interval satisfactory growth progression noted. No complication is present What testing was considered but not performed or refused? (CT, X-rays, U/S, labs)? Why? @ -None What meds were considered but not given or refused? Why? @ -None Did you discuss the management of the patient with other professionals (professionals i.e. , PA, RIVETING MACHINE OPERATOR AUTOMATIC, lab, RT, psych nurse, social worker assistant, supervisor spinning, teacher, consumer loan officer, case resolution specialist)? Give summary @ -No Was smoking cessation discussed for >3mins.? @ -No Was critical care preformed (if so, how long)? @ -No Were there social determinants of health that impacted care today? How? (Homelessness, low income, unemployed, alcoholism, drug addiction, transportation, low edu. Level, literacy, decrease access to med. care, fci, rehab)? @ -No Was there de-escalation of care discussed even if they declined (Discuss DNR or withdrawal of care, Hospice)? DNR status @ -No What co-morbidities impacted this encounter? (DM, HTN, Smoking, COPD, CAD, Cancer, CVA, ARF, Chemo, Hep., AIDS, mental health diagnosis, sleep apnea, morbid obesity)? @ -None Was patient admitted / discharged? Hospital course, mention meds given and route, prescriptions, significant lab abnormalities, going to OR and other pertinent info. @ -18-year-old female currently 12 weeks presenting with chief complaint of nausea and vomiting. Patient has had ongoing issues with nausea and vomiting during her . History and physical examination are conduct ed. Patient is given Reglan and 2 L normal saline fluid bolus. WBC 11.4, likely reactive. Sodium 133. hCG quantitative 83,782.5. Urine shows 4+ ketones, likely due to dehydration. On reassessment patient reports improvement in her symptoms. She is tolerating oral intake. She is provided with Zofran for home. She will follow-up with her CAT BREEDER. Discharged. Follow-up with PCP and CAT BREEDER. Report back to ER with any new or worsening symptoms. Discussed return parameters and answered all questions. Patient conveyed verbal understanding and agreed to the plan. I discussed this case in detail with my attending Dr. Marx Undiagnosed new problem with uncertain prognosis? @ -No Drug Therapy requiring intensive monitoring for toxicity (Heparin, Nitro, Insulin, Cardizem)? @ -No Were any procedures done? @ -No Diagnosis/symptom? @ -Nausea and vomiting in Acute, or Chronic, or Acute on Chronic? @ -Acute Uncomplicated (without systemic symptoms) or Complicated (systemic symptoms)? @ -Uncomplicated Side effects of treatment? @ -No Exacerbation, Progression, or Severe Exacerbation? @ -No Poses a threat to life or bodily function? How? (Chest pain, USA, [place], pneumonia, PE, COPD, DKA, ARF, appy, cholecystitis, CVA, Diverticulitis, Homicidal, Suicidal, threat to staff... and all critical care pts) @ -Unlikely - Lab Data Result diagrams: 05/11/24 02:50 05/11/24 01:35 Lab Results 05/11/24 05/11/24 05/11/24 Range/Units 01:35 02:50 02:50 WBC 11.4 H (4.0-11.0) k/uL RBC 4.26 (3.80-5.40) m/uL Hgb 13.3 (11.4-16.0) gm/dL Hct 37.9 (34.0-46.0) % MCV 88.9 (80.0-100.0) fL MCH 31.2 (25.0-35.0) pg MCHC 35.2 (31.0-37.0) g/dL RDW 12.5 (11.5-15.5) % Plt Count 271 (150-450) k/uL MPV 7.4 Neutrophils % 80 % Lymphocytes % 15 % Monocytes % 5 % Eosinophils % 0 % Basophils % 0 % Neutrophils # 9.1 H (1.3-7.7) k/uL Lymphocytes # 1.7 (1.0-4.8) k/uL Monocytes # 0.5 (0-1.0) k/uL Eosinophils # 0.0 (0-0.7) k/uL Basophils # 0.0 (0-0.2) k/uL Sodium 133 L (137-145) mmol/L Potassium 3.6 (3.5-5.1) mmol/L Chloride 100 (98-107) mmol/L Carbon Dioxide 21 L (22-30) mmol/L Anion Gap 12 mmol/L BUN 10 (7-17) mg/dL Creatinine 0.38 L (0.52-1.04) mg/dL Est GFR (CKD-EPI)AfAm >90 (>60 ml/min/1.73 sqM) Est GFR (CKD-EPI)NonAf >90 (>60 ml/min/1.73 sqM) Glucose 112 H (74-99) mg/dL Calcium 9.8 (8.4-10.2) mg/dL Total Bilirubin 1.0 (0.2-1.3) mg/dL AST 34 (14-36) U/L ALT 24 (4-34) U/L Alkaline Phosphatase 38 (38-126) U/L Total Protein 8.3 H (6.3-8.2) g/dL Albumin 5.0 (3.5-5.0) g/dL Lipase 73 (23-300) U/L HCG, Quant 23734.5 mIU/mL Urine Color Light Red Urine Appearance Cloudy H (Clear) Urine pH 6.0 (5.0-8.0) Ur Specific [place] 1.033 (1.001-1.035) Urine Protein 1+ H (Negative) Urine Glucose (UA) Trace H (Negative) Urine Ketones 4+ H (Negative) Urine Blood Negative (Negative) Urine Nitrite Negative (Negative) Urine Bilirubin Negative (Negative) Urine Urobilinogen 2.0 (<2.0) mg/dL Ur Leukocyte Esterase Negative (Negative) Urine RBC 1 (0-5) /hpf Urine WBC 5 (0-5) /hpf Ur Squamous Epith Cells 7 H (0-4) /hpf Urine Bacteria Rare H (None) /hpf Urine Mucus Many H (None) /hpf Disposition Clinical Impression: Nausea/vomiting in Disposition: HOME SELF-CARE Condition: Good Instructions (If sedation given, give patient instructions): Nausea and Vomiting in (ED) Additional Instructions: Follow-up with PCP and CAT BREEDER. Report back to ER with any new or worsening symptoms. Take medication as prescribed. Prescriptions: Ondansetron Odt [Zofran Odt] 4 mg PO Q8HR PRN #20 tab PRN Reason: Nausea Is patient prescribed a controlled substance at d/c from ED?: No Referrals: Ngoc Estrada MD [Primary Care Provider] - 1-2 days Ethan Salcido MD [STAFF PHYSICIAN] - 1-2 days Time of Disposition: 05:12
[2024-05-11] MEDS: ONDANSETRON 4 MG ODT STARTER PACK 2 TAB BTL PO STA (05:21)
[2024-05-11 05:23] VITALS: BP 117/96; PULSE 72; RESP 18; TEMP 97.6
[2024-05-12 17:05] LABS: HCG,Quantitative Serum 83782.5 mIU/mL
== END 2024-05-11 05:39 | disposition home or self-care (01) ==
LOC: EC 00:46
DX: O21.9 Vomiting of pregnancy, unspecified (principal); Z3A.12 12 weeks gestation of pregnancy
CPT/HCPCS: 36415; 80053; 83690; 85025; 81001; 84702; 76801; 99284; 96374; 96361 ×3; J2765; S0119

== ENCOUNTER 2024-05-13 18:34 | Emergency (ER) | payer OTHER ==
[2024-05-13 18:48] VITALS: TEMP 99.1
--- NOTE | 2024-05-13 19:41 | ED ---
General Adult HPI - General Chief complaint: Nausea/Vomiting/Diarrhea Stated complaint: Dehydration, nausea, voming, 12 wks prg Time Seen by Provider: 05/13/24 18:49 Source: patient, RN notes reviewed Mode of arrival: ambulatory Limitations: no limitations - History of Present Illness Initial comments: 18-year-old G2, P0 female at 12 weeks gestation presents to the emergency department for nausea and vomiting in . Patient states that she has been dealing with this frequently throughout her . She notes that today she has had difficulty keeping anything down. She does have oral antiemetics at home but states that she had vomited them up. She does admit to constipation. Denies any significant abdominal pain. Denies fever, chills. She follows with Dr. Salcido for OB. No significant past medical history. - Related Data Previous Rx's Medication Instructions Recorded Amoxic-Pot Clav 875-125Mg 1 tab PO Q12HR #20 tablet 10/19/23 [Augmentin 875-125] Multivit No.42/Iron/Folate/Dha 1 each PO DAILY #30 cap 04/03/24 [Nestabs One Softgel] Metoclopramide [Reglan] 10 mg PO TID PRN #15 tab 05/04/24 Ondansetron Odt [Zofran Odt] 4 mg PO Q8HR PRN #20 tab 05/11/24 Allergies Allergy/AdvReac Type Severity Reaction Status Date / Time No Known Allergies Allergy Verified 05/13/24 18:48 Review of Systems ROS Statement: Those systems with pertinent positive or pertinent negative responses have been documented in the HPI. ROS Other: All systems not noted in ROS Statement are negative. Past Medical History Past Medical History: No Reported History History of Any Multi-Drug Resistant Organisms: None Reported Past Surgical History: No Surgical Hx Reported Past Psychological History: No Psychological Hx Reported Smoking Status: Never smoker Past Alcohol Use History: None Reported Past Drug Use History: None Reported General Exam Limitations: no limitations General appearance: alert, in no apparent distress Head exam: Present: atraumatic, normocephalic, normal inspection Eye exam: Present: normal appearance, PERRL, EOMI. Absent: scleral icterus, conjunctival injection, periorbital swelling ENT exam: Present: mucous membranes dry Neck exam: Present: normal inspection. Absent: tenderness, meningismus, lymphadenopathy Respiratory exam: Present: normal lung sounds bilaterally. Absent: respiratory distress, wheezes, rales, rhonchi, stridor Cardiovascular Exam: Present: normal rhythm, tachycardia, normal heart sounds. Absent: systolic murmur, diastolic murmur, rubs, gallop, clicks GI/Abdominal exam: Present: soft, normal bowel sounds. Absent: distended, tenderness, guarding, rebound, rigid Extremities exam: Present: normal inspection, full ROM, normal capillary refill. Absent: tenderness, pedal edema, joint swelling, calf tenderness Neurological exam: Present: alert, oriented X3 Psychiatric exam: Present: normal affect, normal mood Skin exam: Present: warm, dry, intact, normal color. Absent: rash Course Vital Signs 05/13/24 05/13/24 05/13/24 18:46 21:51 23:13 Temperature 99.1 F Pulse Rate 120 H 85 78 Respiratory 16 16 18 Rate Blood Pressure 110/64 108/55 112/67 O2 Sat by Pulse 97 97 98 Oximetry Medical Decision Making - Medical Decision Making Was pt. sent in by a medical professional or institution (, PA, CHEMISTRY ASSOCIATE, urgent care, hospital, or [facility]...) When possible be specific @ -No Did you speak to anyone other than the patient for history (EMS, parent, family, police, friend...)? What history was obtained from this source @ -No Did you review nursing and triage notes (agree or disagree)? Why? @ -I reviewed and agree with nursing and triage notes Were old charts reviewed (outside hosp., previous admission, EMS record, old EKG, old radiological studies, urgent care reports/EKG's, [facility] records)? Report findings @ -No old charts were reviewed Differential Diagnosis (chest pain, altered mental status, abdominal pain women, abdominal pain men, vaginal bleeding, weakness, fever, dyspnea, syncope, headache, dizziness, GI bleed, back pain, seizure, CVA, palpatations, mental health, musculoskeletal)? @ -Differential Abdominal Pain Women: Appendicitis, Cholecystitis, diverticulosis, ischemic bowel, pancreatitis, hepatitis, UTI, gastroenteritis, AAA, incarcerated hernia, bowel obstruction, constipation, inflammatory bowel, hepatitis, peptic ulcer disease, splenic infarction, perforated viscus, vulvitis, ovarian torsion, PID, kidney stone, placenta abruption, this is not meant to be an all-inclusive list EKG interpreted by me (3pts min.). @ -None X-rays interpreted by me (1pt min.). @ -None done CT interpreted by me (1pt min.). @ -None done U/S interpreted by me (1pt. min.). @ -None done What testing was considered but not performed or refused? (CT, X-rays, U/S, labs)? Why? @ -None What meds were considered but not given or refused? Why? @ -None Did you discuss the management of the patient with other professionals (professionals i.e. DrRandell, PA, CHEMISTRY ASSOCIATE, lab, RT, psych nurse, social secretary, tire mechanic, teacher, emergency response officer, rehabilitation case coordinator)? Give summary @ -No Was smoking cessation discussed for >3mins.? @ -No Was critical care preformed (if so, how long)? @ -No Were there social determinants of health that impacted care today? How? (Homelessness, low income, unemployed, alcoholism, drug addiction, transportation, low edu. Level, literacy, decrease access to med. care, detention, rehab)? @ -No Was there de-escalation of care discussed even if they declined (Discuss DNR or withdrawal of care, Hospice)? DNR status @ -No What co-morbidities impacted this encounter? (DM, HTN, Smoking, COPD, CAD, Cancer, CVA, ARF, Chemo, Hep., AIDS, mental health diagnosis, sleep apnea, morbid obesity)? @ -None Was patient admitted / discharged? Hospital course, mention meds given and route, prescriptions, significant lab abnormalities, going to OR and other pertinent info. @ -Discharge. Patient presented to the emergency department for evaluation of nausea and vomiting in . Patient states that she has been dealing with this on and off throughout her thus far. She states attempting ODT Zofran at home with no relief. In the ED, patient provided IV hydration along with IV Reglan and Benadryl for symptom control. Patient underwent laboratory studies revealing Mild leukocytosis at 12.7 likely due to vomiting; CMP shows sodium at 133, testing 3.1 likely from volume loss, patient was given K-Dur while in the emergency department. UA shows 1+ protein, 4+ ketones likely due to dehydration. Patient reevaluated after medications and has not had any further vomiting, she is tolerating p.o. intake. Patient will be discharged home. Strict return precautions discussed. She is understanding agreeable plan. Case discussed with Dr. Marx. Undiagnosed new problem with uncertain prognosis? @ -No Drug Therapy requiring intensive monitoring for toxicity (Heparin, Nitro, Insulin, Cardizem)? @ -No Were any procedures done? @ -No Diagnosis/symptom? @ -Nausea and vomiting Acute, or Chronic, or Acute on Chronic? @ -Acute Uncomplicated (without systemic symptoms) or Complicated (systemic symptoms)? @ -Uncomplicated Side effects of treatment? @ -No Exacerbation, Progression, or Severe Exacerbation? @ -No Poses a threat to life or bodily function? How? (Chest pain, [place], [place], pneumonia, PE, COPD, DKA, ARF, appy, cholecystitis, CVA, Diverticulitis, Homicidal, Suicidal, threat to staff... and all critical care pts) @ -No - Lab Data Result diagrams: 05/13/24 19:27 05/13/24 19:27 Lab Results 05/13/24 05/13/24 05/13/24 Range/Units 19:27 19:27 19:27 WBC 12.7 H (4.0-11.0) k/uL RBC 4.48 (3.80-5.40) m/uL Hgb 13.9 (11.4-16.0) gm/dL Hct 39.9 (34.0-46.0) % MCV 89.2 (80.0-100.0) fL MCH 31.1 (25.0-35.0) pg MCHC 34.9 (31.0-37.0) g/dL RDW 12.6 (11.5-15.5) % Plt Count 299 (150-450) k/uL MPV 7.1 Neutrophils % 81 % Lymphocytes % 14 % Monocytes % 4 % Eosinophils % 0 % Basophils % 0 % Neutrophils # 10.3 H (1.3-7.7) k/uL Lymphocytes # 1.8 (1.0-4.8) k/uL Monocytes # 0.5 (0-1.0) k/uL Eosinophils # 0.0 (0-0.7) k/uL Basophils # 0.0 (0-0.2) k/uL Sodium 133 L (137-145) mmol/L Potassium 3.1 L (3.5-5.1) mmol/L Chloride 103 (98-107) mmol/L Carbon Dioxide 21 L (22-30) mmol/L Anion Gap 9 mmol/L BUN 6 L (7-17) mg/dL Creatinine 0.38 L (0.52-1.04) mg/dL Est GFR (CKD-EPI)AfAm >90 (>60 ml/min/1.73 sqM) Est GFR (CKD-EPI)NonAf >90 (>60 ml/min/1.73 sqM) Glucose 93 (74-99) mg/dL Calcium 9.4 (8.4-10.2) mg/dL Magnesium 1.8 (1.6-2.3) mg/dL Total Bilirubin 0.7 (0.2-1.3) mg/dL AST 21 (14-36) U/L ALT 15 (4-34) U/L Alkaline Phosphatase 43 (38-126) U/L Total Protein 7.3 (6.3-8.2) g/dL Albumin 4.6 (3.5-5.0) g/dL Amylase 56 (30-110) U/L Lipase 110 (23-300) U/L HCG, Quant 03445.5 mIU/mL Urine Color Urine Appearance (Clear) Urine pH (5.0-8.0) Ur Specific [place] (1.001-1.035) Urine Protein (Negative) Urine Glucose (UA) (Negative) Urine Ketones (Negative) Urine Blood (Negative) Urine Nitrite (Negative) Urine Bilirubin (Negative) Urine Urobilinogen (<2.0) mg/dL Ur Leukocyte Esterase (Negative) Urine WBC (0-5) /hpf Ur Squamous Epith Cells (0-4) /hpf Amorphous Sediment (None) /hpf Urine Bacteria (None) /hpf Hyaline Casts (0-2) /lpf Urine Mucus (None) /hpf 05/13/24 Range/Units 20:35 WBC (4.0-11.0) k/uL RBC (3.80-5.40) m/uL Hgb (11.4-16.0) gm/dL Hct (34.0-46.0) % MCV (80.0-100.0) fL MCH (25.0-35.0) pg MCHC (31.0-37.0) g/dL RDW (11.5-15.5) % Plt Count (150-450) k/uL MPV Neutrophils % % Lymphocytes % % Monocytes % % Eosinophils % % Basophils % % Neutrophils # (1.3-7.7) k/uL Lymphocytes # (1.0-4.8) k/uL Monocytes # (0-1.0) k/uL Eosinophils # (0-0.7) k/uL Basophils # (0-0.2) k/uL Sodium (137-145) mmol/L Potassium (3.5-5.1) mmol/L Chloride (98-107) mmol/L Carbon Dioxide (22-30) mmol/L Anion Gap mmol/L BUN (7-17) mg/dL Creatinine (0.52-1.04) mg/dL Est GFR (CKD-EPI)AfAm (>60 ml/min/1.73 sqM) Est GFR (CKD-EPI)NonAf (>60 ml/min/1.73 sqM) Glucose (74-99) mg/dL Calcium (8.4-10.2) mg/dL Magnesium (1.6-2.3) mg/dL Total Bilirubin (0.2-1.3) mg/dL AST (14-36) U/L ALT (4-34) U/L Alkaline Phosphatase (38-126) U/L Total Protein (6.3-8.2) g/dL Albumin (3.5-5.0) g/dL Amylase (30-110) U/L Lipase (23-300) U/L HCG, Quant mIU/mL Urine Color Yellow Urine Appearance Clear (Clear) Urine pH 6.5 (5.0-8.0) Ur Specific [place] 1.030 (1.001-1.035) Urine Protein 1+ H (Negative) Urine Glucose (UA) Negative (Negative) Urine Ketones 4+ H (Negative) Urine Blood Negative (Negative) Urine Nitrite Negative (Negative) Urine Bilirubin Negative (Negative) Urine Urobilinogen 3.0 (<2.0) mg/dL Ur Leukocyte Esterase Negative (Negative) Urine WBC 16 H (0-5) /hpf Ur Squamous Epith Cells 3 (0-4) /hpf Amorphous Sediment Rare H (None) /hpf Urine Bacteria Rare H (None) /hpf Hyaline Casts 3 H (0-2) /lpf Urine Mucus Many H (None) /hpf Disposition Clinical Impression: Nausea/vomiting in Disposition: HOME SELF-CARE Condition: Stable Instructions (If sedation given, give patient instructions): Acute Nausea and Vomiting (ED) Additional Instructions: Please follow up with your [facility] P[facility]ER. Return to the emergency department for new or worsening symptoms. Is patient prescribed a controlled substance at d/c from ED?: No Referrals: Ngoc Estrada MD [Primary Care Provider] - 1-2 days
[2024-05-13] MEDS: diphenhydrAMINE 50 MG/ML 1 ML VIAL IVP STA (19:45)
[2024-05-13] MEDS: SODIUM CHLORIDE 0.9% 2,000 ML IV STA (19:45)
[2024-05-13] MEDS: METOCLOPRAMIDE 5 MG/ML 2 ML VIAL IVP STA (19:45)
[2024-05-13 19:54] LABS: Basophils % (A) 0 %; Eosinophils % (A) 0 %; HCT 39.9 % (34.0-46.0); HGB 13.9 gm/dL (11.4-16.0); Lymphocytes # (A) 1.8 k/uL (1.0-4.8); Lymphocytes % (A) 14 %; MCH 31.1 pg (25.0-35.0); MCHC 34.9 g/dL (31.0-37.0); MCV 89.2 fL (80.0-100.0); Mean Platelet Volume 7.1; Monocytes # (A) 0.5 k/uL (0-1.0); Monocytes % (A) 4 %; Neutrophils # (A) 10.3 k/uL (1.3-7.7); Neutrophils % (A) 81 %; Platelet Count 299 k/uL (150-450); RBC 4.48 m/uL (3.80-5.40); RDW 12.6 % (11.5-15.5); WBC 12.7 k/uL (4.0-11.0)
[2024-05-13 20:23] LABS: ALT 15 U/L (4-34); AST 21 U/L (14-36); African American GFR (CKD) >90 (>60 ml/min/1.73 sqM); Albumin 4.6 g/dL (3.5-5.0); Alkaline Phosphatase 43 U/L (38-126); Amylase 56 U/L (30-110); Anion Gap 9 mmol/L; Blood Urea Nitrogen 6 mg/dL (7-17); Calcium 9.4 mg/dL (8.4-10.2); Carbon Dioxide 21 mmol/L (22-30); Chloride 103 mmol/L (98-107); Glucose 93 mg/dL (74-99); Lipase 110 U/L (23-300); Non-African American GFR(CKD) >90 (>60 ml/min/1.73 sqM); Potassium 3.1 mmol/L (3.5-5.1); Sodium 133 mmol/L (137-145); Total Bilirubin 0.7 mg/dL (0.2-1.3); Total Protein 7.3 g/dL (6.3-8.2)
[2024-05-13] MEDS ORDERED: Potassium Replacement Protocol 1 EACH MISC MISCELLANE PRN (20:27)
[2024-05-13] MEDS: POTASSIUM CHLORIDE ER 20 MEQ TAB.ER PO SCH (20:56)
[2024-05-13 21:03] LABS: Amorphous Sediment,Urine Rare /hpf; Appearance,Urine Clear (Clear); Bacteria,Urine Rare /hpf; Bilirubin,Urine Negative (Negative); Blood,Urine Negative (Negative); Color,Urine Yellow; Glucose,Urine (UA) Negative (Negative); Hyaline Casts,Urine 3 /lpf (0-2); Ketones,Urine 4+ (Negative); Leukocyte Esterase,Urine Negative (Negative); Mucus,Urine Many /hpf; Nitrite,Urine Negative (Negative); PH, Urine 6.5 (5.0-8.0); Protein,Urine 1+ (Negative); Squamous Epithelial Cell,Urine 3 /hpf (0-4); WBC,Urine 16 /hpf (0-5)
[2024-05-13 21:42] LABS: HCG,Quantitative Serum 82337.5 mIU/mL
[2024-05-13 23:15] VITALS: BP 112/67; PULSE 78; RESP 18
== END 2024-05-13 23:15 | disposition home or self-care (01) ==
LOC: EC 18:34
DX: O21.9 Vomiting of pregnancy, unspecified (principal); Z3A.12 12 weeks gestation of pregnancy
CPT/HCPCS: 36415; 80053; 82150; 83690; 83735; 85025; 81001; 84702; 87086; 99284; 96374; 96375; 96361 ×2; J1200; J2765

== ENCOUNTER 2024-05-15 22:24 | Observation (INO) | payer OTHER ==
[2024-05-15] MEDS: DEXTROSE 5%-0.9% NACL 1,000 ML IV SCH (23:46)
[2024-05-15] MEDS: METOCLOPRAMIDE 5 MG/ML 2 ML VIAL IVP STA (23:47)
[2024-05-15] MEDS: diphenhydrAMINE 50 MG/ML 1 ML VIAL IVP STA (23:49)
[2024-05-16 00:01] LABS: Basophils % (A) 0 %; Eosinophils % (A) 0 %; Lymphocytes # (A) 1.2 k/uL (1.0-4.8); Lymphocytes % (A) 9 %; MCH 31.1 pg (25.0-35.0); Mean Platelet Volume 7.1; Monocytes # (A) 0.2 k/uL (0-1.0); Monocytes % (A) 2 %; Neutrophils # (A) 11.9 k/uL (1.3-7.7); Neutrophils % (A) 89 %; Platelet Count 253 k/uL (150-450); RBC 4.49 m/uL (3.80-5.40); RDW 12.5 % (11.5-15.5); WBC 13.5 k/uL (4.0-11.0)
[2024-05-16 00:07] LABS: ALT 13 U/L (4-34); AST 19 U/L (14-36); African American GFR (CKD) >90 (>60 ml/min/1.73 sqM); Albumin 4.6 g/dL (3.5-5.0); Alkaline Phosphatase 43 U/L (38-126); Anion Gap 11 mmol/L; Blood Urea Nitrogen 5 mg/dL (7-17); Calcium 9.2 mg/dL (8.4-10.2); Carbon Dioxide 17 mmol/L (22-30); Chloride 104 mmol/L (98-107); Glucose 92 mg/dL (74-99); Lipase 107 U/L (23-300); Non-African American GFR(CKD) >90 (>60 ml/min/1.73 sqM); Potassium 3.4 mmol/L (3.5-5.1); Sodium 132 mmol/L (137-145); Total Bilirubin 0.8 mg/dL (0.2-1.3); Total Protein 7.4 g/dL (6.3-8.2)
[2024-05-16 01:26] LABS: Appearance,Urine Clear (Clear); Bilirubin,Urine Negative (Negative); Blood,Urine Negative (Negative); Color,Urine Colorless; Glucose,Urine (UA) 4+ (Negative); Leukocyte Esterase,Urine Negative (Negative); Nitrite,Urine Negative (Negative); Protein,Urine Trace (Negative); Specific Gravity,Urine 1.028 (1.001-1.035); Urobilinogen,Urine <2.0 mg/dL (<2.0)
[2024-05-16] MEDS: PROCHLORPERAZINE INJ 10 MG/2 ML VIAL IVP STA (01:43)
[2024-05-16] MEDS: D5-0.9% NACL WITH KCL 40 MEQ/L 1,000 ML IV SCH (01:53)
[2024-05-16 02:12] LABS: Ketones,Urine 4+ (Negative)
--- NOTE | 2024-05-16 02:40 | ED ---
General Adult HPI - General Chief complaint: Nausea/Vomiting/Diarrhea Stated complaint: 13 weeks preg,N/V Time Seen by Provider: 05/15/24 22:30 Source: patient Mode of arrival: ambulatory Limitations: no limitations - History of Present Illness Initial comments: 18-year-old female who is G2, P0 who presents to the emergency department with nausea and vomiting. Patient has been seen 3 previous times for this same complaint. She has had intense nausea and vomiting since the beginning of her . She has Reglan, Zofran, Unisom and B6 at home he has been taking however she states she cannot hold any of it down. She has generalized abdominal ache from how much she is vomiting. She follows with Dr. Salcido. Patient had an ultrasound most recently on May 11. She is approximately 12 weeks . She denies any vaginal bleeding or discharge. No urinary complaints to include dysuria, hematuria or difficulty voiding. Denies black or bloody stools. No constipation or diarrhea. She is supposed to have an appointment in the morning with her STILL OPERATOR HELPER however she could not wait. She denies any additional symptoms to include fevers, chest pain, shortness of breath, cough. No other alleviating, precipitating modifying factors - Related Data Previous Rx's Medication Instructions Recorded Amoxic-Pot Clav 875-125Mg 1 tab PO Q12HR #20 tablet 10/19/23 [Augmentin 875-125] Multivit No.42/Iron/Folate/Dha 1 each PO DAILY #30 cap 04/03/24 [Nestabs One Softgel] Metoclopramide [Reglan] 10 mg PO TID PRN #15 tab 05/04/24 Ondansetron Odt [Zofran Odt] 4 mg PO Q8HR PRN #20 tab 05/11/24 Allergies Allergy/AdvReac Type Severity Reaction Status Date / Time No Known Allergies Allergy Verified 05/13/24 18:48 Review of Systems ROS Statement: Those systems with pertinent positive or pertinent negative responses have been documented in the HPI. ROS Other: All systems not noted in ROS Statement are negative. Past Medical History Past Medical History: No Reported History History of Any Multi-Drug Resistant Organisms: None Reported Past Surgical History: No Surgical Hx Reported Past Psychological History: No Psychological Hx Reported Smoking Status: Never smoker Past Alcohol Use History: None Reported Past Drug Use History: None Reported General Exam Limitations: no limitations General appearance: alert, in no apparent distress Head exam: Present: atraumatic, normocephalic, normal inspection Eye exam: Present: normal appearance, PERRL, EOMI. Absent: scleral icterus, conjunctival injection, periorbital swelling ENT exam: Present: normal exam, mucous membranes dry Neck exam: Present: normal inspection. Absent: tenderness, meningismus, lymphadenopathy Respiratory exam: Present: normal lung sounds bilaterally. Absent: respiratory distress, wheezes, rales, rhonchi, stridor Cardiovascular Exam: Present: regular rate, normal rhythm, normal heart sounds. Absent: systolic murmur, diastolic murmur, rubs, gallop, clicks GI/Abdominal exam: Present: soft, normal bowel sounds. Absent: distended, tenderness, guarding, rebound, rigid Extremities exam: Present: normal inspection, full ROM, normal capillary refill. Absent: tenderness, pedal edema, joint swelling, calf tenderness Back exam: Present: normal inspection Neurological exam: Present: alert, oriented X3, CN II-XII intact Psychiatric exam: Present: normal affect, normal mood Skin exam: Present: warm, dry, intact, normal color. Absent: rash Course Vital Signs 05/15/24 05/15/24 05/16/24 22:27 23:30 01:30 Temperature 97.7 F Pulse Rate 88 81 85 Pulse Rate [ Right Brachial] Respiratory 18 18 18 Rate Blood Pressure 117/80 125/70 132/79 Blood Pressure [Right Arm] O2 Sat by Pulse 98 98 98 Oximetry 05/16/24 05/16/24 03:13 03:19 Temperature 98.2 F Pulse Rate 87 Pulse Rate [ 85 Right Brachial] Respiratory 16 18 Rate Blood Pressure 98/50 Blood Pressure 116/76 [Right Arm] O2 Sat by Pulse 99 100 Oximetry Medical Decision Making - Medical Decision Making Was pt. sent in by a medical professional or institution (, PA, MACHINE PACKER, urgent care, hospital, or detention...) When possible be specific @ -No Did you speak to anyone other than the patient for history (EMS, parent, family, police, friend...)? What history was obtained from this source @ -No Did you review nursing and triage notes (agree or disagree)? Why? @ -I reviewed and agree with nursing and triage notes Were old charts reviewed (outside hosp., previous admission, EMS record, old EKG, old radiological studies, urgent care reports/EKG's, detention records)? Report findings @ -I reviewed the 3 previous ED visits for patient was seen for same complaint Differential Diagnosis (chest pain, altered mental status, abdominal pain women, abdominal pain men, vaginal bleeding, weakness, fever, dyspnea, syncope, headache, dizziness, GI bleed, back pain, seizure, CVA, palpatations, mental health, musculoskeletal)? @ -Differential Appendicitis, Cholecystitis, diverticulosis, ischemic bowel, pancreatitis, hepatitis, UTI, gastroenteritis, AAA, incarcerated hernia, bowel obstruction, constipation, inflammatory bowel, hepatitis, peptic ulcer disease, splenic infarction, perforated viscus, vulvitis, ovarian torsion, PID, kidney stone, placenta abruption, this is not meant to be an all-inclusive list EKG interpreted by me (3pts min.). @ -Not done X-rays interpreted by me (1pt min.). @ -None done CT interpreted by me (1pt min.). @ -None done U/S interpreted by me (1pt. min.). @ -Bedside ultrasound was performed by myself which demonstrates positive movement with a heart rate of 131 What testing was considered but not performed or refused? (CT, X-rays, U/S, labs)? Why? @ -None What meds were considered but not given or refused? Why? @ -None Did you discuss the management of the patient with other professionals (professionals i.e. , PA, MACHINE PACKER, lab, RT, psych nurse, social science research assistant, burn center nurse, teacher, fisheries enforcement officer, therapeutic case manager)? Give summary @ -I discussed the case with Dr. Yumi Alcantar who does agree to admission of the patient Was smoking cessation discussed for >3mins.? @ -No Was critical care preformed (if so, how long)? @ -No Were there social determinants of health that impacted care today? How? (Homelessness, low income, unemployed, alcoholism, drug addiction, transportation, low edu. Level, literacy, decrease access to med. care, [facility], rehab)? @ -No Was there de-escalation of care discussed even if they declined (Discuss DNR or withdrawal of care, Hospice)? DNR status @ -No What co-morbidities impacted this encounter? (DM, HTN, Smoking, COPD, CAD, Cancer, CVA, ARF, Chemo, Hep., AIDS, mental health diagnosis, sleep apnea, morbid obesity)? @ -None Was patient admitted / discharged? Hospital course, mention meds given and route, prescriptions, significant lab abnormalities, going to OR and other pertinent info. @ -Upon arrival patient seen and evaluated in room 9. Thorough history and physical exam was performed. IV access was established. She was given 2 L bolus of D5.9. Laboratory studies are conducted. She does provide a urine sample which continues to demonstrate 4+ ketones. She was given Reglan, Benadr yl for nausea. Continues to remain nauseous and therefore was given a dose of IV Compazine. Results are discussed with the patient. Due to her significant ketonuria after the dextrose bolus I did recommend admission for which she was agreeable. Spoke with Dr. Liriano who agreed to admission. He does recommend 2 additional liters of normal saline. Patient was agreeable to this plan and she was admitted to the floor in stable condition Undiagnosed new problem with uncertain prognosis? @ -No Drug Therapy requiring intensive monitoring for toxicity (Heparin, Nitro, Insulin, Cardizem)? @ -No Were any procedures done? @ -No Diagnosis/symptom? @ -Acute nausea and vomiting, first trimester , ketonuria Acute, or Chronic, or Acute on Chronic? @ -Acute Uncomplicated (without systemic symptoms) or Complicated (systemic symptoms)? @ -Complicated Side effects of treatment? @ -No Exacerbation, Progression, or Severe Exacerbation? @ -No Poses a threat to life or bodily function? How? (Chest pain, [place], [place], pneumonia, PE, COPD, DKA, ARF, appy, cholecystitis, CVA, Diverticulitis, Homicidal, Suicidal, threat to staff... and all critical care pts) @ -Yes as there could be a threat to baby's life - Lab Data Result diagrams: 05/15/24 23:35 05/15/24 23:35 Lab Results 05/15/24 05/15/24 05/16/24 Range/Units 23:35 23:35 01:01 WBC 13.5 H (4.0-11.0) k/uL RBC 4.49 (3.80-5.40) m/uL Hgb 14.0 (11.4-16.0) gm/dL Hct 40.0 (34.0-46.0) % MCV 89.0 (80.0-100.0) fL MCH 31.1 (25.0-35.0) pg MCHC 35.0 (31.0-37.0) g/dL RDW 12.5 (11.5-15.5) % Plt Count 253 (150-450) k/uL MPV 7.1 Neutrophils % 89 % Lymphocytes % 9 % Monocytes % 2 % Eosinophils % 0 % Basophils % 0 % Neutrophils # 11.9 H (1.3-7.7) k/uL Lymphocytes # 1.2 (1.0-4.8) k/uL Monocytes # 0.2 (0-1.0) k/uL Eosinophils # 0.0 (0-0.7) k/uL Basophils # 0.0 (0-0.2) k/uL Sodium 132 L (137-145) mmol/L Potassium 3.4 L (3.5-5.1) mmol/L Chloride 104 (98-107) mmol/L Carbon Dioxide 17 L (22-30) mmol/L Anion Gap 11 mmol/L BUN 5 L (7-17) mg/dL Creatinine 0.37 L (0.52-1.04) mg/dL Est GFR (CKD-EPI)AfAm >90 (>60 ml/min/1.73 sqM) Est GFR (CKD-EPI)NonAf >90 (>60 ml/min/1.73 sqM) Glucose 92 (74-99) mg/dL Calcium 9.2 (8.4-10.2) mg/dL Total Bilirubin 0.8 (0.2-1.3) mg/dL AST 19 (14-36) U/L ALT 13 (4-34) U/L Alkaline Phosphatase 43 (38-126) U/L Total Protein 7.4 (6.3-8.2) g/dL Albumin 4.6 (3.5-5.0) g/dL Lipase 107 (23-300) U/L Urine Color Colorless Urine Appearance Clear (Clear) Urine pH 6.0 (5.0-8.0) Ur Specific [place] 1.028 (1.001-1.035) Urine Protein Trace H (Negative) Urine Glucose (UA) 4+ H (Negative) Urine Ketones 4+ H (Negative) Urine Blood Negative (Negative) Urine Nitrite Negative (Negative) Urine Bilirubin Negative (Negative) Urine Urobilinogen <2.0 (<2.0) mg/dL Ur Leukocyte Esterase Negative (Negative) Disposition Clinical Impression: Nausea/vomiting in Disposition: ADMITTED IP TO THIS HOSP Condition: Stable Is patient prescribed a controlled substance at d/c from ED?: No Decision to Admit Reason: Admit from EC Decision Date: 05/16/24 Decision Time: 02:41
[2024-05-16] MEDS ORDERED: ACETAMINOPHEN TAB 325 MG TAB PO PRN (02:45)
[2024-05-16] MEDS ORDERED: NALOXONE 0.4 MG/ML 1 ML VIAL IV PRN (02:45)
[2024-05-16] MEDS ORDERED: diphenhydrAMINE 50 MG/ML 1 ML VIAL IVP PRN (03:08)
[2024-05-16] MEDS: SODIUM CHLORIDE 0.9% 2,000 ML IV ONE (03:10)
[2024-05-16] MEDS: DEXTROSE 5%-0.9% NACL 1,000 ML IV SCH (03:16)
[2024-05-16] MEDS: SODIUM CHLORIDE 0.9% 1,000 ML IV SCH (06:04)
[2024-05-16] MEDS: METOCLOPRAMIDE 5 MG/ML 2 ML VIAL IVP SCH (06:04)
[2024-05-16 07:45] VITALS: RESP 16
--- NOTE | 2024-05-16 08:47 | P.HPOB ---
History of Present Illness H&P Date: 05/16/24 Chief Complaint: 13 weeks, hyperemesis gravidarum Patient is a 18-year-old 2 para 0-0-1-0 who presents for the fourth time to the emergency room with severe nausea and vomiting and significant dehydration, essentially intractable in nature. She has been using Reglan, Zofran, B6, and Unisom to no effect. She has been unable to tolerate any solids or liquids for at least 2 days time. In the emergency room, despite 1 to 2 L of IV fluid, she still was demonstrated to have 4+ ketones in her urine. She does admit to at least occasional marijuana but otherwise has had no other issues with the to include spotting or bleeding. She has had documentation of a normal viability. This morning after several liters of fluid, she continues to feel moderately nauseated but somewhat improved from admission. Obstetrical history: 2 para 0-0-1-0 with 1 early miscarriage and otherwise statistics are listed in history of present illness. Gynecologic history: Unremarkable and noncontributory. Review of Systems Review of systems is confined to history of present illness. Past Medical History Past Medical History: No Reported History History of Any Multi-Drug Resistant Organisms: None Reported Past Surgical History: No Surgical Hx Reported Past Psychological History: No Psychological Hx Reported Smoking Status: Never smoker Past Alcohol Use History: None Reported Past Drug Use History: None Reported Medications and Allergies Home Medications Medication Instructions Recorded Confirmed Type Amoxic-Pot Clav 875-125Mg 1 tab PO Q12HR #20 tablet 10/19/23 Rx [Augmentin 875-125] Multivit No.42/Iron/Folate/Dha 1 each PO DAILY #30 cap 04/03/24 Rx [Nestabs One Softgel] Metoclopramide [Reglan] 10 mg PO TID PRN #15 tab 05/04/24 Rx Ondansetron Odt [Zofran Odt] 4 mg PO Q8HR PRN #20 tab 05/11/24 Rx Allergies Allergy/AdvReac Type Severity Reaction Status Date / Time No Known Allergies Allergy Verified 05/13/24 18:48 Exam Vital Signs Temp Pulse Pulse Resp BP BP Pulse Ox 05/16/24 07:42 98.0 F 98 16 101/60 98 05/16/24 03:19 87 18 98/50 100 05/16/24 03:13 98.2 F 85 16 116/76 99 05/16/24 01:30 85 18 132/79 98 05/15/24 23:30 81 18 125/70 98 05/15/24 22:27 97.7 F 88 18 117/80 98 Intake and Output 05/15/24 05/16/24 05/16/24 22:59 06:59 14:59 Output Total 30 50 Balance -30 -50 Output: Emesis 30 50 Other: # Voids 1 Weight 53.524 kg 53.524 kg In general, this is a well-developed, well-nourished white female who appears uncomfortable with nausea. Her heart has a regular rhythm and rate without murmur. Her lungs are clear to auscultation bilaterally in all muller. Her abdomen is nondistended, soft, nontender, and without any apparent masses. Her extremities are without any cyanosis, clubbing, or edema. Pelvic examination is deferred. Results Result Diagrams: 05/15/24 23:35 05/15/24 23:35 Abnormal Lab Results - Last 24 Hours (Table) 05/15/24 05/15/24 05/16/24 Range/Units 23:35 23:35 01:01 WBC 13.5 H (4.0-11.0) k/uL Neutrophils # 11.9 H (1.3-7.7) k/uL Sodium 132 L (137-145) mmol/L Potassium 3.4 L (3.5-5.1) mmol/L Carbon Dioxide 17 L (22-30) mmol/L BUN 5 L (7-17) mg/dL Creatinine 0.37 L (0.52-1.04) mg/dL Urine Protein Trace H (Negative) Urine Glucose (UA) 4+ H (Negative) Urine Ketones 4+ H (Negative) Assessment and Plan (1) Nausea/vomiting in Current Visit: Yes Status: Acute Code(s): O21.9 - VOMITING OF , UNSPECIFIED SNOMED Code(s): 2424666152 Plan: The patient is having aggressive IV rehydration. She will additionally have access to antiemetics as necessary. I will add a dose of pantoprazole daily to try to decrease gastritis and potentially reflux. At the moment, we will confi ne her to clear liquids as tolerated. If she is able to tolerate liquids we will likely be able to discharge her to add back solids at home.
[2024-05-16] MEDS: ONDANSETRON 4 MG/2 ML VIAL IVP PRN (08:57)
[2024-05-16] MEDS: PANTOPRAZOLE 40 MG/10 ML VIAL IVP SCH (09:34)
[2024-05-16 12:29] VITALS: BP 103/65; PULSE 65; TEMP 98.2
== END 2024-05-16 17:40 ==
LOC: EC 22:24 → 4FBP 05-16 03:06
PROVIDERS: ADMIT Obstetrics & Gynecology; ATTEND Obstetrics & Gynecology
DX: O99.611 Diseases of the digestive system complicating pregnancy, first trimester (principal); K29.70 Gastritis, unspecified, without bleeding; Z3A.13 13 weeks gestation of pregnancy; O21.0 Mild hyperemesis gravidarum; R19.7 Diarrhea, unspecified; O99.281 Endocrine, nutritional and metabolic diseases complicating pregnancy, first trimester; E86.0 Dehydration
CPT/HCPCS: 96376; 96375 ×2; 96374; 99284; 36415; 80053; 83690; 83735; 85025; 81003; G0378; J1200; J0780; J2765 ×2; J2405; J2470

== ENCOUNTER 2024-06-29 20:19 | Emergency (ER) | payer OTHER ==
[2024-06-29 22:27] LABS: Basophils % (A) 0 %; Eosinophils # (A) 0.1 k/uL (0-0.7); Eosinophils % (A) 1 %; HCT 37.5 % (34.0-46.0); HGB 12.9 gm/dL (11.4-16.0); Lymphocytes # (A) 2.3 k/uL (1.0-4.8); Lymphocytes % (A) 20 %; MCH 32.1 pg (25.0-35.0); MCHC 34.3 g/dL (31.0-37.0); MCV 93.7 fL (80.0-100.0); Mean Platelet Volume 7.1; Monocytes # (A) 0.5 k/uL (0-1.0); Monocytes % (A) 5 %; Neutrophils # (A) 8.1 k/uL (1.3-7.7); Neutrophils % (A) 73 %; Platelet Count 241 k/uL (150-450); RBC 4.01 m/uL (3.80-5.40); RDW 12.9 % (11.5-15.5); WBC 11.1 k/uL (4.0-11.0)
[2024-06-29 22:36] LABS: ALT 9 U/L (4-34); AST 19 U/L (14-36); African American GFR (CKD) >90 (>60 ml/min/1.73 sqM); Albumin 4.6 g/dL (3.5-5.0); Alkaline Phosphatase 49 U/L (38-126); Amylase 52 U/L (30-110); Anion Gap 8 mmol/L; Blood Urea Nitrogen 6 mg/dL (7-17); Calcium 9.4 mg/dL (8.4-10.2); Carbon Dioxide 19 mmol/L (22-30); Chloride 108 mmol/L (98-107); Glucose 81 mg/dL (74-99); Lipase 49 U/L (23-300); Non-African American GFR(CKD) >90 (>60 ml/min/1.73 sqM); Potassium 3.6 mmol/L (3.5-5.1); Sodium 135 mmol/L (137-145); Total Bilirubin 0.6 mg/dL (0.2-1.3); Total Protein 7.4 g/dL (6.3-8.2)
--- NOTE | 2024-06-29 22:37 | ED ---
Abdominal Pain HPI - General Chief Complaint: Abdominal Pain Stated Complaint: 19wks preg, abd pain Time Seen by Provider: 06/29/24 20:27 Source: patient, RN notes reviewed Mode of arrival: ambulatory Limitations: no limitations - History of Present Illness MD Complaint: abdominal pain Onset/Timin -: hour(s) Location: suprapubic Radiation: L flank, back Severity: severe (Started as severe (9/10)) Severity scale (1-10): 4 (Pain now is 4/10) Quality: cramping Consistency: constant Improves With: nothing Worsens With: nothing Associated Symptoms: nausea, vomiting, anorexia - Related Data Previous Rx's Medication Instructions Recorded Amoxic-Pot Clav 875-125Mg 1 tab PO Q12HR #20 tablet 10/19/23 [Augmentin 875-125] Multivit No.42/Iron/Folate/Dha 1 each PO DAILY #30 cap 04/03/24 [Nestabs One Softgel] Metoclopramide [Reglan] 10 mg PO TID PRN #15 tab 05/04/24 Ondansetron Odt [Zofran Odt] 4 mg PO Q8HR PRN #20 tab 05/11/24 Allergies Allergy/AdvReac Type Severity Reaction Status Date / Time No Known Allergies Allergy Verified 06/29/24 20:38 Review of Systems ROS Statement: Those systems with pertinent positive or pertinent negative responses have been documented in the HPI. ROS Other: All systems not noted in ROS Statement are negative. Past Medical History Past Medical History: No Reported History History of Any Multi-Drug Resistant Organisms: None Reported Past Surgical History: No Surgical Hx Reported Past Psychological History: No Psychological Hx Reported Smoking Status: Never smoker Past Alcohol Use History: None Reported Past Drug Use History: None Reported General Exam Limitations: no limitations General appearance: alert, in no apparent distress Head exam: Present: atraumatic, normocephalic, normal inspection Eye exam: Present: normal appearance, PERRL, EOMI. Absent: scleral icterus, conjunctival injection, periorbital swelling ENT exam: Present: normal exam, mucous membranes moist Neck exam: Present: normal inspection. Absent: tenderness, meningismus, lymphadenopathy Respiratory exam: Present: normal lung sounds bilaterally. Absent: respiratory distress, wheezes, rales, rhonchi, stridor Cardiovascular Exam: Present: regular rate, normal rhythm, normal heart sounds. Absent: systolic murmur, diastolic murmur, rubs, gallop, clicks GI/Abdominal exam: Present: soft, tenderness (Positive suprapubic, right lower quadrant and McBurney point TTP without guarding), hypoactive bowel sounds. Absent: distended, guarding, rebound, rigid Extremities exam: Present: normal inspection, full ROM, normal capillary refill. Absent: tenderness, pedal edema, joint swelling, calf tenderness Back exam: Present: normal inspection Neurological exam: Present: alert, oriented X3, CN II-XII intact Psychiatric exam: Present: normal affect, normal mood Skin exam: Present: warm, dry, intact, normal color. Absent: rash Course Vital Signs 06/29/24 20:35 Temperature 97.9 F Pulse Rate 89 Respiratory 18 Rate Blood Pressure 124/79 O2 Sat by Pulse 98 Oximetry Medical Decision Making - Medical Decision Making Was pt. sent in by a medical professional or institution (, PA, RESIDENCY COORDINATOR, urgent care, hospital, or fci...) When possible be specific @ -[No] Did you speak to anyone other than the patient for history (EMS, parent, family, police, friend...)? What history was obtained from this source @ -[No] Did you review nursing and triage notes (agree or disagree)? Why? @ -[I reviewed and agree with nursing and triage notes] Were old charts reviewed (outside hosp., previous admission, EMS record, old EKG, old radiological studies, urgent care reports/EKG's, fci records)? Report findings @ -[No old charts were reviewed] Differential Diagnosis (chest pain, altered mental status, abdominal pain women, abdominal pain men, vaginal bleeding, weakness, fever, dyspnea, syncope, headache, dizziness, GI bleed, back pain, seizure, CVA, palpatations, mental health, musculoskeletal)? @ -Differential Abdominal Pain Women: Appendicitis, Cholecystitis, diverticulosis, ischemic bowel, pancreatitis, hepat itis, UTI, gastroenteritis, AAA, incarcerated hernia, bowel obstruction, constipation, inflammatory bowel, hepatitis, peptic ulcer disease, splenic infarction, perforated viscus, vulvitis, ovarian torsion, PID, kidney stone, placenta abruption, this is not meant to be an all-inclusive list EKG interpreted by me (3pts min.). @ -Not done X-rays interpreted by me (1pt min.). @ -[None done] CT interpreted by me (1pt min.). @ -[None done] U/S interpreted by me (1pt. min.). @ -[None done] What testing was considered but not performed or refused? (CT, X-rays, U/S, labs)? Why? @ -[None] What meds were considered but not given or refused? Why? @ -[None] Did you discuss the management of the patient with other professionals (professionals i.e. , PA, RESIDENCY COORDINATOR, lab, RT, psych nurse, criminal justice social worker, allergist immunologist, teacher, security vehicle patrol officer, business case analyst)? Give summary @ -[No] Was smoking cessation discussed for >3mins.? @ -[No] Was critical care preformed (if so, how long)? @ -[No] Were there social determinants of health that impacted care today? How? (Homelessness, low income, unemployed, alcoholism, drug addiction, transportation, low edu. Level, literacy, decrease access to med. care, longterm, rehab)? @ -[No] Was there de-escalation of care discussed even if they declined (Discuss DNR or withdrawal of care, Hospice)? DNR status @ -[No] What co-morbidities impacted this encounter? (DM, HTN, Smoking, COPD, CAD, Cancer, CVA, ARF, Chemo, Hep., AIDS, mental health diagnosis, sleep apnea, morbid obesity)? @ -[None] Was patient admitted / discharged? Hospital course, mention meds given and route, prescriptions, significant lab abnormalities, going to OR and other pertinent info. @ -[hospital course] Undiagnosed new problem with uncertain prognosis? @ -[No] Drug Therapy requiring intensive monitoring for toxicity (Heparin, Nitro, Insulin, Cardizem)? @ -[No] Were any procedures done? @ -[No] Diagnosis/symptom? @ -[default] Acute, or Chronic, or Acute on Chronic? @ -Acute Uncomplicated (without systemic symptoms) or Complicated (systemic symptoms)? @ -Complicated Side effects of treatment? @ -[No] Exacerbation, Progression, or Severe Exacerbation? @ -[No] Poses a threat to life or bodily function? How? (Chest pain, USA, MS, pneumonia, PE, COPD, DKA, ARF, appy, cholecystitis, CVA, Diverticulitis, Homicidal, Suicidal, threat to staff... and all critical care pts) @ -[No] - Lab Data Result diagrams: 06/29/24 22:12 06/29/24 22:12 Lab Results 06/29/24 06/29/24 06/29/24 Range/Units 22:12 22:12 22:12 WBC 11.1 H (4.0-11.0) k/uL RBC 4.01 (3.80-5.40) m/uL Hgb 12.9 (11.4-16.0) gm/dL Hct 37.5 (34.0-46.0) % MCV 93.7 (80.0-100.0) fL MCH 32.1 (25.0-35.0) pg MCHC 34.3 (31.0-37.0) g/dL RDW 12.9 (11.5-15.5) % Plt Count 241 (150-450) k/uL MPV 7.1 Neutrophils % 73 % Lymphocytes % 20 % Monocytes % 5 % Eosinophils % 1 % Basophils % 0 % Neutrophils # 8.1 H (1.3-7.7) k/uL Lymphocytes # 2.3 (1.0-4.8) k/uL Monocytes # 0.5 (0-1.0) k/uL Eosinophils # 0.1 (0-0.7) k/uL Basophils # 0.0 (0-0.2) k/uL Sodium 135 L (137-145) mmol/L Potassium 3.6 (3.5-5.1) mmol/L Chloride 108 H (98-107) mmol/L Carbon Dioxide 19 L (22-30) mmol/L Anion Gap 8 mmol/L BUN 6 L (7-17) mg/dL Creatinine 0.44 L (0.52-1.04) mg/dL Est GFR (CKD-EPI)AfAm >90 (>60 ml/min/1.73 sqM) Est GFR (CKD-EPI)NonAf >90 (>60 ml/min/1.73 sqM) Glucose 81 (74-99) mg/dL Plasma Lactic Acid Lai 0.6 L (0.7-2.0) mmol/L Calcium 9.4 (8.4-10.2) mg/dL Total Bilirubin 0.6 (0.2-1.3) mg/dL AST 19 (14-36) U/L ALT 9 (4-34) U/L Alkaline Phosphatase 49 (38-126) U/L Total Protein 7.4 (6.3-8.2) g/dL Albumin 4.6 (3.5-5.0) g/dL Amylase 52 (30-110) U/L Lipase 49 (23-300) U/L Urine Color Urine Appearance (Clear) Urine pH (5.0-8.0) Ur Specific Franklin (1.001-1.035) Urine Protein (Negative) Urine Glucose (UA) (Negative) Urine Ketones (Negative) Urine Blood (Negative) Urine Nitrite (Negative) Urine Bilirubin (Negative) Urine Urobilinogen (<2.0) mg/dL Ur Leukocyte Esterase (Negative) Urine RBC (0-5) /hpf Urine WBC (0-5) /hpf Ur Squamous Epith Cells (0-4) /hpf Urine Bacteria (None) /hpf Urine Mucus (None) /hpf Blood Type Blood Type Recheck Bld Type Recheck Status Antibody Screen Spec Expiration Date 06/29/24 06/29/24 Range/Units 22:12 23:42 WBC (4.0-11.0) k/uL RBC (3.80-5.40) m/uL Hgb (11.4-16.0) gm/dL Hct (34.0-46.0) % MCV (80.0-100.0) fL MCH (25.0-35.0) pg MCHC (31.0-37.0) g/dL RDW (11.5-15.5) % Plt Count (150-450) k/uL MPV Neutrophils % % Lymphocytes % % Monocytes % % Eosinophils % % Basophils % % Neutrophils # (1.3-7.7) k/uL Lymphocytes # (1.0-4.8) k/uL Monocytes # (0-1.0) k/uL Eosinophils # (0-0.7) k/uL Basophils # (0-0.2) k/uL Sodium (137-145) mmol/L Potassium (3.5-5.1) mmol/L Chloride (98-107) mmol/L Carbon Dioxide (22-30) mmol/L Anion Gap mmol/L BUN (7-17) mg/dL Creatinine (0.52-1.04) mg/dL Est GFR (CKD-EPI)AfAm (>60 ml/min/1.73 sqM) Est GFR (CKD-EPI)NonAf (>60 ml/min/1.73 sqM) Glucose (74-99) mg/dL Plasma Lactic Acid Lai (0.7-2.0) mmol/L Calcium (8.4-10.2) mg/dL Total Bilirubin (0.2-1.3) mg/dL AST (14-36) U/L ALT (4-34) U/L Alkaline Phosphatase (38-126) U/L Total Protein (6.3-8.2) g/dL Albumin (3.5-5.0) g/dL Amylase (30-110) U/L Lipase (23-300) U/L Urine Color Yellow Urine Appearance Cloudy H (Clear) Urine pH 6.0 (5.0-8.0) Ur Specific Franklin 1.035 (1.001-1.035) Urine Protein 1+ H (Negative) Urine Glucose (UA) Negative (Negative) Urine Ketones 4+ H (Negative) Urine Blood Negative (Negative) Urine Nitrite Negative (Negative) Urine Bilirubin Negative (Negative) Urine Urobilinogen 2.0 (<2.0) mg/dL Ur Leukocyte Esterase Negative (Negative) Urine RBC 1 (0-5) /hpf Urine WBC 2 (0-5) /hpf Ur Squamous Epith Cells 26 H (0-4) /hpf Urine Bacteria Rare H (None) /hpf Urine Mucus Many H (None) /hpf Blood Type A Positive Blood Type Recheck A Pos Bld Type Recheck Status No Antibody Screen NEGATIVE Spec Expiration Date 07/02/20242311 Disposition Clinical Impression: Abdominal pain during in second trimester Disposition: HOME SELF-CARE Condition: Good Instructions (If sedation given, give patient instructions): Abdominal Pain in (ED) Additional Instructions: Follow-up with [facility] for ongoing symptoms. Unisom and vitamin B6 for nausea/vomiting Is patient prescribed a controlled substance at d/c from ED?: No Referrals: Ngoc Estrada MD [Primary Care Provider] - 1-2 days Time of Disposition: 00:43
--- NOTE | 2024-06-29 23:22 | US ---
EXAMINATION TYPE: US abdomen APPY DATE OF EXAM: 06/29/2024 COMPARISON: CT 10/19/23 CLINICAL INDICATION: Female, 18 years old with history of Lower abdominal cramping, RLQ TTP; lower ab dominal cramping right side TECHNIQUE: Multiple sonographic images of the right lower quadrant were obtained with graded compress ion with grayscale and color Doppler imaging. FINDINGS: APPENDIX AP Diameter (normal < 6mm): NA mm Measured outer wall to outer wall. Is the appendix seen in its entirety from the proximal cecum to distal end: no Is the appendix compressible: NA Does the appendix wall appear hypervascular: NA Is an appendicolith present: NA Is there inflammatory changes or free fluid present: no GAS GENERATOR OPERATOR NOTES: Unable to visualize the appendix with ultrasound at this time IMPRESSION: Nonvisualization of the appendix in the right lower quadrant. This does not exclude diagnosis of acut e appendicitis. [facility], , 06/29/2024 11:20 PM
--- NOTE | 2024-06-29 23:24 | US ---
EXAMINATION TYPE: US OB >= 14 wk fetus DATE OF EXAM: 06/29/2024 COMPARISON: 05/11/24 CLINICAL INDICATION: Female, 18 years old with history of Lower abdominal cramping; Patient states lo wer abdominal cramping. No bleeding TECHNIQUE: Transabdominal (TA) FINDINGS: GESTATIONAL AGE / DATING Physician Established: (19 weeks/0 days) EDC: 11/23/2024 Dates by LMP: (19 weeks/0 days) EDC: 11/23/2024 Dates by First Scan: (19 weeks/0 days) EDC: 11/23/2024 Dates by Current Scan: (19 weeks/3 days) EDC: 11/20/2024 Beta HCG (if available): Not available at this time SURVEY IUP: Single PLACENTA: Anterior. There are multiple anechoic areas seen within the placenta, largest measuring 1.5 cm near the edge of the placenta on the right side PREVIA: No Previa IRINEO: 14.54 cm Normal CERVICAL LENGTH (transabdominal: norm > 3.0cm): 3.12 cm BIOMETRY PRESENTATION: Breech LIE: Oblique BPD: 4.57 cm 19 weeks / 6 days HC: 16.77 cm 19 weeks / 4 days AC: 14.31 cm 19 weeks / 5 days FL: 2.78 cm 18 weeks / 4 days ESTIMATED WEIGHT IN GRAMS: 278 grams ESTIMATED WEIGHT IN LBS/OZ: 0 lbs. 10 oz. WEIGHT PERCENTAGE BASED ON ESTABLISHED DATES: 56% HC/AC: 1.17 Normal FL/AC: 19% HEART RATE: 138 bpm RHYTHM: Normal Single live intrauterine gestation is redemonstrated. No placenta previa. No cervical effacement. Est imated amniotic fluid index within normal limits. Breech presentation noted currently. biometry measurements congruent and within normal limits. IMPRESSION: As above [facility], , 06/29/2024 11:21 PM
[2024-06-30 00:31] LABS: Appearance,Urine Cloudy (Clear); Bacteria,Urine Rare /hpf; Bilirubin,Urine Negative (Negative); Blood,Urine Negative (Negative); Color,Urine Yellow; Glucose,Urine (UA) Negative (Negative); Ketones,Urine 4+ (Negative); Leukocyte Esterase,Urine Negative (Negative); Mucus,Urine Many /hpf; Nitrite,Urine Negative (Negative); Protein,Urine 1+ (Negative); RBC,Urine 1 /hpf (0-5); Specific Gravity,Urine 1.035 (1.001-1.035); Squamous Epithelial Cell,Urine 26 /hpf (0-4); WBC,Urine 2 /hpf (0-5)
[2024-06-30 01:28] VITALS: BP 109/68; PULSE 61; RESP 16; TEMP 98.1
== END 2024-06-30 01:28 | disposition home or self-care (01) ==
LOC: EC 20:19
DX: O26.892 Other specified pregnancy related conditions, second trimester (principal); R10.31 Right lower quadrant pain; Z3A.19 19 weeks gestation of pregnancy
CPT/HCPCS: 36415; 76705; 76805; 80053; 81001; 82150; 83605; 83690; 85025; 86850; 86900; 86901; 99284

== ENCOUNTER 2024-07-13 01:37 | Emergency (ER) | payer OTHER ==
--- NOTE | 2024-07-13 02:15 | ED ---
Nausea/Vomiting/Diarrhea HPI - General Source: patient, RN notes reviewed, old records reviewed Mode of arrival: ambulatory <Brigitte Sterling - Last Filed: 07/13/24 04:11> <Dina Ortiz - Last Filed: 07/13/24 06:15> - General Chief complaint: Nausea/Vomiting/Diarrhea Stated complaint: Nausea, Vomiting Time Seen by Provider: 07/13/24 02:14 - History of Present Illness Initial comments: 18-year-old female presented to the ER for evaluation of nausea and vomiting. Patient is G2, P0 approximately 21 weeks gestation. She states she has a history of hyperemesis gravidarium in and was admitted in May 2024 for intractable nausea vomiting. Patient states past couple days she has felt very nauseous and vomiting without relief of B6 complex. She states she has not been able to keep Zofran or Reglan down. She denies any fevers, cough, congestion, chest pain, shortness of breath, abdominal pain/cramping or vaginal bleeding/discharge. No peripheral edema. No other complaints. Patient is following up with Dr. Salcido. (Brigitte Sterling) - Related Data Previous Rx's Medication Instructions Recorded Amoxic-Pot Clav 875-125Mg 1 tab PO Q12HR #20 tablet 10/19/23 [Augmentin 875-125] Multivit No.42/Iron/Folate/Dha 1 each PO DAILY #30 cap 04/03/24 [Nestabs One Softgel] Metoclopramide [Reglan] 10 mg PO TID PRN #15 tab 05/04/24 Ondansetron Odt [Zofran Odt] 4 mg PO Q8HR PRN #20 tab 05/11/24 Allergies Allergy/AdvReac Type Severity Reaction Status Date / Time No Known Allergies Allergy Verified 07/13/24 01:56 Review of Systems ROS Other: All systems not noted in ROS Statement are negative. <Brigitte Sterling - Last Filed: 07/13/24 04:11> ROS Other: All systems not noted in ROS Statement are negative. <Dina Ortiz - Last Filed: 07/13/24 06:15> ROS Statement: Those systems with pertinent positive or pertinent negative responses have been documented in the HPI. Past Medical History Past Medical History: No Reported History History of Any Multi-Drug Resistant Organisms: None Reported Past Surgical History: No Surgical Hx Reported Past Psychological History: No Psychological Hx Reported Smoking Status: Never smoker Past Alcohol Use History: None Reported Past Drug Use History: None Reported <Brigitte Sterling - Last Filed: 07/13/24 04:11> General Exam Limitations: no limitations General appearance: alert, in no apparent distress Respiratory exam: Present: normal lung sounds bilaterally. Absent: respiratory distress, wheezes, rales, rhonchi, stridor Cardiovascular Exam: Present: regular rate, normal rhythm, normal heart sounds. Absent: systolic murmur, diastolic murmur, rubs, gallop, clicks GI/Abdominal exam: Present: soft, normal bowel sounds, other (Gravid abdomen. Uterus felt about the umbilicus) Neurological exam: Present: alert, oriented X3, CN II-XII intact Skin exam: Present: warm, dry, intact, normal color. Absent: rash <Brigitte Sterling - Last Filed: 07/13/24 04:11> Course Vital Signs 07/13/24 01:54 Temperature 98.2 F Pulse Rate 75 Respiratory 18 Rate Blood Pressure 115/72 O2 Sat by Pulse 99 Oximetry Medical Decision Making - Lab Data Result diagrams: 07/13/24 02:41 <Brigitte Sterling - Last Filed: 07/13/24 04:11> - Lab Data Result diagrams: 07/13/24 02:41 07/13/24 03:53 <Dina Ortiz - Last Filed: 07/13/24 06:15> - Medical Decision Making Was pt. sent in by a medical professional or institution (, PA, DEMOGRAPHIC ANALYST, urgent care, hospital, or usp...) When possible be specific @ -No Did you speak to anyone other than the patient for history (EMS, parent, family, police, friend...)? What history was obtained from this source @ -No Did you review nursing and triage notes (agree or disagree)? Why? @ -I reviewed and agree with nursing and triage notes Were old charts reviewed (outside hosp., previous admission, EMS record, old EKG, old radiological studies, urgent care reports/EKG's, usp records)? Report findings @ -No old charts were reviewed Differential Diagnosis (chest pain, altered mental status, abdominal pain women, abdominal pain men, vaginal bleeding, weakness, fever, dyspnea, syncope, headache, dizziness, GI bleed, back pain, seizure, CVA, palpatations, mental health, musculoskeletal)? @ -Gastritis, cholecystitis, cannabis hyperemesis syndrome, pancreatitis, gastroenteritis, viral illness, diverticulitis, colitis, Crohn's disease, ulcerative colitis, IBS processes, to be all-inclusive EKG interpreted by me (3pts min.). @ -None done X-rays interpreted by me (1pt min.). @ -None done CT interpreted by me (1pt min.). @ -None done U/S interpreted by me (1pt. min.). @ -None done What testing was considered but not performed or refused? (CT, X-rays, U/S, labs)? Why? @ -None What meds were considered but not given or refused? Why? @ -None Did you discuss the management of the patient with other professionals (professionals i.e. , PA, DEMOGRAPHIC ANALYST, lab, RT, psych nurse, social media content specialist, coffee urn attendant, teacher, sea air land officer, home health care case manager)? Give summary @ -No Was smoking cessation discussed for >3mins.? @ -No Was critical care preformed (if so, how long)? @ -No Were there social determinants of health that impacted care today? How? (Homelessness, low income, unemployed, alcoholism, drug addiction, transportation, low edu. Level, literacy, decrease access to med. care, fdc, rehab)? @ -No Was there de-escalation of care discussed even if they declined (Discuss DNR or withdrawal of care, Hospice)? DNR status @ -No What co-morbidities impacted this encounter? (DM, HTN, Smoking, COPD, CAD, Cancer, CVA, ARF, Chemo, Hep., AIDS, mental health diagnosis, sleep apnea, morbid obesity)? @ - Was patient admitted / discharged? Hospital course, mention meds given and route, prescriptions, significant lab abnormalities, going to OR and other pertinent info. @ -18-year-old female approximately 21 weeks gestation presenting to the ER for evaluation of nausea and vomiting. Patient does report a history of hyperemesis gravidarium. Patient denying any abdominal discomfort or vaginal bleeding/discharge. Laboratory studies showing a leukocytosis of 12.8 with a left shift. Lactic 1.3. CMP and urinalysis pending at time of signout. Patient given IV fluids, Zofran, Reglan, Pepcid, Benadryl for symptom control. Patient signed out to Dr. Ortiz pending results and dispostion. (Brigitte Sterling) Patient signed out to myself pending control and nausea and vomiting. On my assessment patient endorses improvement of symptoms. Denies any abdominal pain. Was able to tolerate p.o. intake. Plan for discharge with OB follow-up. I did discuss patient's case with Dr. Ramirez to ensure patient did not need to go to OB triage for observation, patient does not need to go for NST as long as heart tones were obtained. Patient's heart tones 1 33-1 66. (Dina Ortiz) - Lab Data Lab Results 07/13/24 07/13/24 07/13/24 Range/Units 02:41 02:41 03:53 WBC 12.8 H (4.0-11.0) k/uL RBC 4.57 (3.80-5.40) m/uL Hgb 14.7 (11.4-16.0) gm/dL Hct 41.6 (34.0-46.0) % MCV 91.0 (80.0-100.0) fL MCH 32.1 (25.0-35.0) pg MCHC 35.3 (31.0-37.0) g/dL RDW 13.0 (11.5-15.5) % Plt Count 254 (150-450) k/uL MPV 8.7 Neutrophils % 81 % Lymphocytes % 13 % Monocytes % 4 % Eosinophils % 1 % Basophils % 0 % Neutrophils # 10.4 H (1.3-7.7) k/uL Lymphocytes # 1.7 (1.0-4.8) k/uL Monocytes # 0.5 (0-1.0) k/uL Eosinophils # 0.1 (0-0.7) k/uL Basophils # 0.0 (0-0.2) k/uL Sodium 134 L (137-145) mmol/L Potassium 3.1 L (3.5-5.1) mmol/L Chloride 102 (98-107) mmol/L Carbon Dioxide 20 L (22-30) mmol/L Anion Gap 12 mmol/L BUN 8 (7-17) mg/dL Creatinine 0.41 L (0.52-1.04) mg/dL Est GFR (CKD-EPI)AfAm >90 (>60 ml/min/1.73 sqM) Est GFR (CKD-EPI)NonAf >90 (>60 ml/min/1.73 sqM) Glucose 105 H (74-99) mg/dL Plasma Lactic Acid Lai 1.3 (0.7-2.0) mmol/L Calcium 9.2 (8.4-10.2) mg/dL Total Bilirubin 0.6 (0.2-1.3) mg/dL AST 17 (14-36) U/L ALT 13 (4-34) U/L Alkaline Phosphatase 57 (38-126) U/L Total Protein 7.0 (6.3-8.2) g/dL Albumin 4.3 (3.5-5.0) g/dL Urine Color Urine Appearance (Clear) Urine pH (5.0-8.0) Ur Specific [place] (1.001-1.035) Urine Protein (Negative) Urine Glucose (UA) (Negative) Urine Ketones (Negative) Urine Blood (Negative) Urine Nitrite (Negative) Urine Bilirubin (Negative) Urine Urobilinogen (<2.0) mg/dL Ur Leukocyte Esterase (Negative) Urine RBC (0-5) /hpf Urine WBC (0-5) /hpf Ur Squamous Epith Cells (0-4) /hpf Urine Mucus (None) /hpf 07/13/24 Range/Units 04:30 WBC (4.0-11.0) k/uL RBC (3.80-5.40) m/uL Hgb (11.4-16.0) gm/dL Hct (34.0-46.0) % MCV (80.0-100.0) fL MCH (25.0-35.0) pg MCHC (31.0-37.0) g/dL RDW (11.5-15.5) % Plt Count (150-450) k/uL MPV Neutrophils % % Lymphocytes % % Monocytes % % Eosinophils % % Basophils % % Neutrophils # (1.3-7.7) k/uL Lymphocytes # (1.0-4.8) k/uL Monocytes # (0-1.0) k/uL Eosinophils # (0-0.7) k/uL Basophils # (0-0.2) k/uL Sodium (137-145) mmol/L Potassium (3.5-5.1) mmol/L Chloride (98-107) mmol/L Carbon Dioxide (22-30) mmol/L Anion Gap mmol/L BUN (7-17) mg/dL Creatinine (0.52-1.04) mg/dL Est GFR (CKD-EPI)AfAm (>60 ml/min/1.73 sqM) Est GFR (CKD-EPI)NonAf (>60 ml/min/1.73 sqM) Glucose (74-99) mg/dL Plasma Lactic Acid Lai (0.7-2.0) mmol/L Calcium (8.4-10.2) mg/dL Total Bilirubin (0.2-1.3) mg/dL AST (14-36) U/L ALT (4-34) U/L Alkaline Phosphatase (38-126) U/L Total Protein (6.3-8.2) g/dL Albumin (3.5-5.0) g/dL Urine Color Yellow Urine Appearance Cloudy H (Clear) Urine pH 6.0 (5.0-8.0) Ur Specific [place] 1.027 (1.001-1.035) Urine Protein 1+ H (Negative) Urine Glucose (UA) Negative (Negative) Urine Ketones 4+ H (Negative) Urine Blood Negative (Negative) Urine Nitrite Negative (Negative) Urine Bilirubin Negative (Negative) Urine Urobilinogen <2.0 (<2.0) mg/dL Ur Leukocyte Esterase Negative (Negative) Urine RBC <1 (0-5) /hpf Urine WBC 8 H (0-5) /hpf Ur Squamous Epith Cells 11 H (0-4) /hpf Urine Mucus Many H (None) /hpf Disposition <Brigitte Sterling - Last Filed: 07/13/24 04:11> Is patient prescribed a controlled substance at d/c from ED?: No <Dina Ortiz - Last Filed: 07/13/24 06:15> Clinical Impression: Nausea and vomiting during Disposition: HOME SELF-CARE Condition: Good Instructions (If sedation given, give patient instructions): Acute Nausea and Vomiting (ED) Additional Instructions: Every disease is a spectrum and a small chance still exists that a serious condition could develop, for this reason, please monitor yourself closely for new, changing or worsening symptoms, symptoms that persist beyond 48 hours, new or severe abdominal pain, vaginal bleeding, fever, inability to tolerate/keep down fluids or your medications, inability to follow up with outpatient providers as instructed and should you experience these symptoms or should you have any further concerns for your wellbeing please return to the ED or call 911 immediately. Please follow-up with your chaser helper, Dr. Salcido within the next 48 hours. PLEASE call your primary care physician as soon as possible to arrange / discuss plan for followup appointment. Appointment in the next 1-3 days is strongly encouraged if possible. PLEASE let us know here before you leave if there is anything further we can do to be of any assistance. Take care and feel Better! Referrals: Ngoc Estrada MD [Primary Care Provider] - 1-2 days
[2024-07-13 02:54] LABS: Basophils % (A) 0 %; Eosinophils # (A) 0.1 k/uL (0-0.7); Eosinophils % (A) 1 %; HCT 41.6 % (34.0-46.0); HGB 14.7 gm/dL (11.4-16.0); Lymphocytes # (A) 1.7 k/uL (1.0-4.8); Lymphocytes % (A) 13 %; MCH 32.1 pg (25.0-35.0); MCHC 35.3 g/dL (31.0-37.0); Mean Platelet Volume 8.7; Monocytes # (A) 0.5 k/uL (0-1.0); Monocytes % (A) 4 %; Neutrophils # (A) 10.4 k/uL (1.3-7.7); Neutrophils % (A) 81 %; Platelet Count 254 k/uL (150-450); RBC 4.57 m/uL (3.80-5.40); WBC 12.8 k/uL (4.0-11.0)
[2024-07-13] MEDS: ONDANSETRON 4 MG/2 ML VIAL IVP STA (03:13)
[2024-07-13] MEDS: SODIUM CHLORIDE 0.9% 1,000 ML IV STA ×2 (03:14→05:59)
[2024-07-13 04:17] LABS: ALT 13 U/L (4-34); AST 17 U/L (14-36); African American GFR (CKD) >90 (>60 ml/min/1.73 sqM); Albumin 4.3 g/dL (3.5-5.0); Alkaline Phosphatase 57 U/L (38-126); Anion Gap 12 mmol/L; Blood Urea Nitrogen 8 mg/dL (7-17); Calcium 9.2 mg/dL (8.4-10.2); Carbon Dioxide 20 mmol/L (22-30); Chloride 102 mmol/L (98-107); Glucose 105 mg/dL (74-99); Non-African American GFR(CKD) >90 (>60 ml/min/1.73 sqM); Potassium 3.1 mmol/L (3.5-5.1); Sodium 134 mmol/L (137-145); Total Bilirubin 0.6 mg/dL (0.2-1.3)
[2024-07-13] MEDS: DEXTROSE 5%-0.45% NACL 1,000 ML IV ONE (04:26)
[2024-07-13] MEDS: FAMOTIDINE 20 MG/2 ML VIAL IV STA (04:28)
[2024-07-13] MEDS: diphenhydrAMINE 50 MG/ML 1 ML VIAL IVP STA (04:30)
[2024-07-13] MEDS: METOCLOPRAMIDE 5 MG/ML 2 ML VIAL IVP STA (04:33)
[2024-07-13 04:47] LABS: Appearance,Urine Cloudy (Clear); Bilirubin,Urine Negative (Negative); Blood,Urine Negative (Negative); Color,Urine Yellow; Glucose,Urine (UA) Negative (Negative); Ketones,Urine 4+ (Negative); Leukocyte Esterase,Urine Negative (Negative); Mucus,Urine Many /hpf; Nitrite,Urine Negative (Negative); Protein,Urine 1+ (Negative); RBC,Urine <1 /hpf (0-5); Specific Gravity,Urine 1.027 (1.001-1.035); Squamous Epithelial Cell,Urine 11 /hpf (0-4); Urobilinogen,Urine <2.0 mg/dL (<2.0); WBC,Urine 8 /hpf (0-5)
[2024-07-13 06:23] VITALS: BP 114/72; PULSE 71; RESP 17; TEMP 98.1
== END 2024-07-13 06:23 | disposition home or self-care (01) ==
LOC: EC 01:37
DX: O21.9 Vomiting of pregnancy, unspecified (principal); O99.112 Other diseases of the blood and blood-forming organs and certain disorders involving the immune mechanism complicating pregnancy, second trimester; D72.829 Elevated white blood cell count, unspecified; Z3A.21 21 weeks gestation of pregnancy
CPT/HCPCS: 36415; 80053; 83605; 85025; 81001; 99284; 96374; 96375 ×3; 96361 ×3; J1200; J2765; J2405; J3490

== ENCOUNTER 2024-07-14 13:31 | Observation (INO) | payer OTHER ==
[2024-07-14] MEDS: LACTATED RINGERS 1,000 ML IV SCH ×2 (14:17→16:13)
[2024-07-14] MEDS: ONDANSETRON 4 MG/2 ML VIAL IVP STA (14:23)
[2024-07-14 14:35] LABS: Basophils % (A) 0 %; Eosinophils % (A) 0 %; HCT 39.5 % (34.0-46.0); HGB 13.6 gm/dL (11.4-16.0); Lymphocytes # (A) 1.4 k/uL (1.0-4.8); Lymphocytes % (A) 12 %; MCH 31.9 pg (25.0-35.0); MCHC 34.5 g/dL (31.0-37.0); MCV 92.4 fL (80.0-100.0); Mean Platelet Volume 7.2; Monocytes # (A) 0.4 k/uL (0-1.0); Monocytes % (A) 4 %; Neutrophils # (A) 9.6 k/uL (1.3-7.7); Neutrophils % (A) 83 %; Platelet Count 249 k/uL (150-450); RBC 4.28 m/uL (3.80-5.40); RDW 12.5 % (11.5-15.5); WBC 11.5 k/uL (4.0-11.0)
[2024-07-14 14:39] LABS: Appearance,Urine Cloudy (Clear); Bilirubin,Urine Negative (Negative); Blood,Urine Negative (Negative); Color,Urine Yellow; Glucose,Urine (UA) Negative (Negative); Hyaline Casts,Urine 3 /lpf (0-2); Ketones,Urine 4+ (Negative); Leukocyte Esterase,Urine Trace (Negative); Mucus,Urine Many /hpf; Nitrite,Urine Negative (Negative); PH, Urine 6.5 (5.0-8.0); Protein,Urine 1+ (Negative); RBC,Urine 2 /hpf (0-5); Squamous Epithelial Cell,Urine 15 /hpf (0-4); WBC,Urine 5 /hpf (0-5)
[2024-07-14] MEDS: PROMETHAZINE SUPPOSITORY 12.5 MG SUPP RECTAL STA (14:39)
[2024-07-14 14:45] LABS: ALT 25 U/L (4-34); AST 26 U/L (14-36); African American GFR (CKD) >90 (>60 ml/min/1.73 sqM); Albumin 4.4 g/dL (3.5-5.0); Alkaline Phosphatase 66 U/L (38-126); Anion Gap 11 mmol/L; Blood Urea Nitrogen 6 mg/dL (7-17); Calcium 9.3 mg/dL (8.4-10.2); Carbon Dioxide 23 mmol/L (22-30); Chloride 102 mmol/L (98-107); Glucose 89 mg/dL (74-99); Non-African American GFR(CKD) >90 (>60 ml/min/1.73 sqM); Sodium 136 mmol/L (137-145); Total Bilirubin 0.4 mg/dL (0.2-1.3)
[2024-07-14] MEDS: POTASSIUM CHLORIDE ER 20 MEQ TAB.ER PO SCH (15:15)
[2024-07-14] MEDS: ACETAMINOPHEN IV (For NPO) 1,000 MG in EMPTY BAG 1 BAG IVPB STA (16:11)
[2024-07-14] MEDS: FAMOTIDINE 20 MG/2 ML VIAL IV SCH (16:11)
[2024-07-14] MEDS: METOCLOPRAMIDE 5 MG/ML 2 ML VIAL IVP SCH (16:12)
[2024-07-14] MEDS: PROMETHAZINE SUPPOSITORY 12.5 MG SUPP RECTAL PRN (21:18)
[2024-07-14] MEDS: diphenhydrAMINE 50 MG/ML 1 ML VIAL IVP PRN (23:18)
[2024-07-14 23:53] VITALS: BP 107/63; PULSE 75; RESP 16; TEMP 98.2
[2024-07-15] MEDS ORDERED: ACETAMINOPHEN TAB 500 MG TAB PO PRN
[2024-07-15] MEDS: ONDANSETRON 4 MG/2 ML VIAL IVP PRN (06:46)
[2024-07-15] MEDS ORDERED: METOCLOPRAMIDE 5 MG/ML 2 ML VIAL IVP PRN (08:01)
--- NOTE | 2024-07-15 09:46 | P.HPOB ---
History of Present Illness H&P Date: 07/15/24 Chief Complaint: IUP at 21 weeks, nausea vomiting 18-year-old 1 para 0 at approximately 21 weeks of that presented last evening with complaints of increased nausea and vomiting, unable to keep anything down. Patient was seen earlier in the week in the emergency department for the same complaint. Patient was hydrated in OB triage but vomiting continued therefore the decision was made to observe this patient overnight. Patient was taking Zofran ODT at home, some relief with p.o. Reglan. On observation patient was started on IV fluids, Phenergan 12.5 mg MD, Zofran 4 mg IV, Benadryl and Pepcid were given in addition. Patient did well through the night, no emesis between 11 PM and 7 AM. Patient states she is feeling better this morning. And would like discharge home Review of Systems Constitutional: Reports fatigue, Denies chills, Denies fever Cardiovascular: Denies leg edema Gastrointestinal: Reports nausea, Reports vomiting, Denies constipation, Denies diarrhea Genitourinary: Reports Past Medical History Past Medical History: No Reported History History of Any Multi-Drug Resistant Organisms: None Reported Past Surgical History: No Surgical Hx Reported Past Anesthesia/Blood Transfusion Reactions: No Reported Reaction Past Psychological History: Depression Additional Psychological History / Comment(s): no current meds Smoking Status: Never smoker Past Alcohol Use History: None Reported Past Drug Use History: None Reported - Past Family History Mother Family Medical History: No Reported History Medications and Allergies Home Medications Medication Instructions Recorded Confirmed Type Multivit No.42/Iron/Folate/Dha 1 each PO DAILY #30 cap 04/03/24 07/14/24 Rx [Nestabs One Softgel] Metoclopramide [Reglan] 10 mg PO TID PRN #15 tab 05/04/24 07/14/24 Rx Ondansetron Odt [Zofran Odt] 4 mg PO Q8HR PRN #20 tab 05/11/24 07/14/24 Rx Allergies Allergy/AdvReac Type Severity Reaction Status Date / Time No Known Allergies Allergy Verified 07/13/24 01:56 Exam Osteopathic Statement: *. No significant issues noted on an osteopathic structural exam other than those noted in the History and Physical/Consult. Vital Signs Temp Pulse Resp BP Pulse Ox 07/14/24 23:52 98.2 F 75 16 107/63 97 07/14/24 16:43 97.9 F 71 18 124/66 100 07/14/24 13:36 97.8 F 64 18 138/84 99 Intake and Output 07/14/24 07/15/24 07/15/24 22:59 06:59 14:59 Other: # Voids 2 2 Weight 52.163 kg Targeted physical exam is performed this date, in general this is a female resting comfortably in bed. Breathing is noted to be nonlabored. Patient states she is comfortable and slept through the night. heart tones via Doppler. Results Result Diagrams: 07/14/24 14:30 07/14/24 14:30 Abnormal Lab Results - Last 24 Hours (Table) 07/14/24 07/14/24 07/14/24 Range/Units 13:40 14:30 14:30 WBC 11.5 H (4.0-11.0) k/uL Neutrophils # 9.6 H (1.3-7.7) k/uL Sodium 136 L (137-145) mmol/L Potassium 3.0 L (3.5-5.1) mmol/L BUN 6 L (7-17) mg/dL Creatinine 0.51 L (0.52-1.04) mg/dL Urine Appearance Cloudy H (Clear) Urine Protein 1+ H (Negative) Urine Ketones 4+ H (Negative) Ur Leukocyte Esterase Trace H (Negative) Ur Squamous Epith Cells 15 H (0-4) /hpf Hyaline Casts 3 H (0-2) /lpf Urine Mucus Many H (None) /hpf 07/14/24 Range/Units 14:30 WBC (4.0-11.0) k/uL Neutrophils # (1.3-7.7) k/uL Sodium (137-145) mmol/L Potassium (3.5-5.1) mmol/L BUN 6 L (7-17) mg/dL Creatinine (0.52-1.04) mg/dL Urine Appearance (Clear) Urine Protein (Negative) Urine Ketones (Negative) Ur Leukocyte Esterase (Negative) Ur Squamous Epith Cells (0-4) /hpf Hyaline Casts (0-2) /lpf Urine Mucus (None) /hpf Assessment and Plan (1) 21 weeks gestation of Current Visit: Yes Status: Acute Code(s): Z3A.21 - 21 WEEKS GESTATION OF SNOMED Code(s): 82854616 (2) Nausea/vomiting in Current Visit: No Status: Acute Code(s): O21.9 - VOMITING OF , UNSPECIFIED SNOMED Code(s): 0761545587 Plan: 18-year-old 1 para 0 at approximately 21 weeks of that presents with intractable nausea and vomiting of . Patient was hydrated through the night and antiemetics were given. Patient is feeling better this morning we will plan discharge home with close follow-up at [facility]. Prescriptions for Phenergan suppositories 12.5 mg every 6, Zofran 4 mg p.o. twice daily, omeprazole 20 mg daily, encouraged Benadryl at night in addition. Brat diet, small meals throughout the day are encouraged.
--- NOTE | 2024-07-15 09:49 | P.DS ---
Providers Date of admission: 07/14/24 15:53 Expected date of discharge: 07/15/24 Attending physician: Rziwana Golden Primary care physician: Stated None - Discharge Diagnosis(es) (1) 21 weeks gestation of Current Visit: Yes Status: Acute (2) Nausea/vomiting in Current Visit: No Status: Acute Hospital Course: 18-year-old 2 para 0-0-1-0 at approximately 21 weeks of presents with tractable nausea and vomiting. Patient was seen earlier in the week through the emergency department for the same problem. Patient was unable to be controlled in OB triage therefore she was observed overnight. Phenergan suppositories IV Zofran IV Pepcid and IV Benadryl were initiated. Patient did well through the night. Patient did have 1 episode of emesis this morning but states she is feeling better. Plan of care is discussed in detail including Phenergan suppositories, p.o. Zofran twice a daily, Phenergan as needed at night, omeprazole daily in addition. Patient states understanding. Questions are answered. Patient Condition at Discharge: Good Plan - Discharge Summary New Discharge Prescriptions: No Action Multivit No.42/Iron/Folate/Dha [Nestabs One Softgel] 1 each PO DAILY #30 cap Ondansetron Odt [Zofran Odt] 4 mg PO Q8HR PRN #20 tab PRN Reason: Nausea Metoclopramide [Reglan] 10 mg PO TID PRN #15 tab PRN Reason: Nausea Discharge Medication List Multivit No.42/Iron/Folate/Dha [Nestabs One Softgel] 1 each PO DAILY #30 cap 04/03/24 [Rx] Metoclopramide [Reglan] 10 mg PO TID PRN #15 tab 05/04/24 [Rx] Ondansetron Odt [Zofran Odt] 4 mg PO Q8HR PRN #20 tab 05/11/24 [Rx] Follow up Appointment(s)/Referral(s): Ethan Salcido MD [STAFF PHYSICIAN] - 1 Week Patient Instructions/Handouts: Nausea and Vomiting in (ED), Nausea and Vomiting in (GEN) Discharge Disposition: HOME SELF-CARE
== END 2024-07-15 11:01 | disposition home or self-care (01) ==
LOC: FBPOP 13:31 → INTOOBSV 15:53 → 4FBP 15:53 → UNDODISIN 07-15 11:01
PROVIDERS: ADMIT Obstetrics & Gynecology Obstetrics; ATTEND Obstetrics & Gynecology Obstetrics
DX: O21.2 Late vomiting of pregnancy (principal); Z3A.21 21 weeks gestation of pregnancy
CPT/HCPCS: 96376 ×2; 96361; 96374; 96375; 80053; 84520; 85025; 81001; G0463; G0378; J1200; J2765 ×2; J2405 ×2; J3490 ×2; 96360; 99214

== ENCOUNTER 2024-11-02 09:11 | Outpatient (CLI) | payer OTHER ==
[2024-11-02 10:59] VITALS: BP 119/63; PULSE 88; RESP 16; TEMP 97.8
--- NOTE | 2024-11-04 11:46 | P.MSEPDOC ---
Presenting Problems - Arrival Data Date of Arrival on Unit: 11/02/24 Time of Arrival on Unit: 09:11 Mode of Transport: Ambulatory - Complaint OB-Reason for Admission/Chief Complaint: Rule Out SROM Medical History - Information : 2 Para: 0 Term: 0 : 0 Abortions: Spontaneous or Elective: 1 Number of Living Children: 0 - Gestational Age Gestational Age by RAMY (wks/days): 37 Weeks and 2 Days Review of Systems - Review of Systems Constitutional: No problems Breast: No problems ENT: No problems Cardiovascular: No problems Respiratory: No problems Gastrointestinal: No problems Genitourinary: No problems Musculoskeletal: No problems Neurological: No problems Skin: No problems Vital Signs - Temperature Temperature: 97.8 F Temperature Source: Temporal Artery Scan - Pulse Right Brachial Pulse Rate: 88 Pulse Assessment Method: Automatic Cuff - Respirations Respiratory Rate: 16 Oxygen Delivery Method: Room Air O2 Sat by Pulse Oximetry: 99 - Blood Pressure Right Arm Blood Pressure: 119/63 Blood Pressure Mean: 81 Blood Pressure Source: Automatic Cuff Medical Screen Scoring - Cervical Exam Dilation (cm): 2.5 Effacement (%): 70 Station: -3 Membranes: Intact - Uterine Contractions Frequency From (mins): 5 Frequency To (mins): 7 Duration From (seconds): 70 Duration To (seconds): 90 Intensity: Mild Resting: Soft to palpation - Assessment - Baby A Baseline FHR: 120 Heart Rate - NICHD Category: Category I (Normal) NST: Reactive Physician Notification - Physician Notified Physician Notified Date: 11/02/24 Physician Notified Time: 10:43 Physician: Ethan Salcido Order Received: Yes - Notification Comment Comment: Dr. Salcido given report on pt. aware of pt c/o. VS WNL. Amnisure negative, Reactive NST. Cat 1 FHTs noted, irregular contractions per toco. Pt appears comfortable while talking with RN. Orders received to d/c pt to home. Maternal Triage Index - Prompt/Priority 3 Prompt Priority 3: Yes Criteria Met for Priority 3: Pt c/o of contractions and leaking fluid. Disposition - Disposition OB Disposition: Discharge to home Discharge Date: 11/02/24 Discharge Time: 10:46 I agree with the RN Medical Screening Exam: Yes Physician's MSE Comment: I have neither seen nor examined the patient. Case reviewed; plan agreed upon as documented in EMR&OBIX.: Yes Diagnosis: RELATED CONDITIONS, UNSPECIFIED, THIRD TRIMESTER
== END 2024-11-02 10:46 | disposition home or self-care (01) ==
LOC: FBPOP 09:11
PROVIDERS: ATTEND Obstetrics & Gynecology
DX: O26.893 Other specified pregnancy related conditions, third trimester (principal); Z3A.37 37 weeks gestation of pregnancy
CPT/HCPCS: 59025; 84112; G0463; 99213

== ENCOUNTER 2024-11-04 01:55 | Inpatient (IN) | payer OTHER ==
[2024-11-04] MEDS ORDERED: TRANEXAMIC 1,000 MG/100ML-NACL 1,000 MG in EMPTY BAG 1 BAG IV PRN (02:38)
[2024-11-04] MEDS ORDERED: OXYTOCIN 10 UNIT/ML 1 ML VIAL IM PRN (02:38)
[2024-11-04] MEDS ORDERED: miSOPROStoL 200 MCG TAB PO PRN (02:38)
[2024-11-04] MEDS ORDERED: METHYLERGONOVINE 0.2 MG/ML 1 ML AMP IM PRN (02:38)
[2024-11-04] MEDS ORDERED: CARBOPROST TROMETHAMINE 250 MCG/ML 1 ML AMP IM PRN (02:38)
[2024-11-04] MEDS ORDERED: TERBUTALINE 1 MG/ML VIAL SQ PRN (02:38)
[2024-11-04] MEDS ORDERED: miSOPROStoL 200 MCG TAB RECTAL PRN (02:38)
[2024-11-04] MEDS: LACTATED RINGERS 1,000 ML IV SCH (02:45)
[2024-11-04 02:59] LABS: Basophils # (A) 0.06 10*3/uL (0.00-0.10); Basophils % (A) 0.4 %; Eosinophils # (A) 0.19 10*3/uL (0.04-0.35); Eosinophils % (A) 1.4 %; HCT 36.4 % (37.2-46.3); HGB 12.8 g/dL (12.0-15.0); Lymphocytes # (A) 3.38 10*3/uL (0.90-5.00); Lymphocytes % (A) 24.3 %; MCH 31.7 pg (27.0-32.0); MCHC 35.2 g/dL (32.0-37.0); MCV 90.1 fL (80.0-97.0); Mean Platelet Volume 10.7 fL (9.5-12.2); Monocytes # (A) 0.72 10*3/uL (0.20-1.00); Monocytes % (A) 5.2 %; Neutrophils % (A) 68.3 %; Platelet Count 286 10*3/uL (140-440); RBC 4.04 10*6/uL (4.10-5.20); RDW 12.8 % (11.5-14.5); WBC 13.91 10*3/uL (4.50-10.00)
[2024-11-04] MEDS ORDERED: SODIUM CHLORIDE 0.9% 250 ML BAG ONE (03:36)
[2024-11-04] MEDS ORDERED: ROPIVACAINE 5 MG/ML 30 ML VIAL ONE (03:36)
[2024-11-04] MEDS ORDERED: fentaNYL (PF) 50 MCG/ML 5 ML AMP ONE (03:36)
--- NOTE | 2024-11-04 11:04 | P.HPOB ---
History of Present Illness H&P Date: 11/04/24 Chief Complaint: 37-2/7 weeks, active labor Patient is a 19-year-old 2 para 0-0-1-0 admitted at 37-2/7 weeks as established by 10-week ultrasound. She is admitted in early active labor with all signs reassuring, category 1 heart rate tracing. Her has been uncomplicated though she was found with a small for gestational age fetus in the third trimester with estimated weight at or just above the 10th percentile. testing has been reassuring on a weekly basis. The strep status is negative. Obstetrical history: 2 para 0-0-1-0 with current statistics listed in history of present illness. EDC of 11/21/2024 was established by 10- week ultrasound. Laboratory workup demonstrates a blood type of A+ with a negative antibody screen. Rubella status is immune. The remainder of the laboratory workup was within normal limits. 1 hour Glucola was normal and group B strep status is negative. Gynecologic history: Unremarkable with no history of any infections to include STDs. Review of Systems Review of systems is confined to history of present illness. Past Medical History Past Medical History: No Reported History History of Any Multi-Drug Resistant Organisms: None Reported Past Surgical History: No Surgical Hx Reported Past Anesthesia/Blood Transfusion Reactions: No Reported Reaction Past Psychological History: Depression Additional Psychological History / Comment(s): no current meds Smoking Status: Never smoker Past Alcohol Use History: None Reported Past Drug Use History: None Reported - Past Family History Mother Family Medical History: No Reported History Medications and Allergies Home Medications Medication Instructions Recorded Confirmed Type Multivit No.42/Iron/Folate/Dha 1 each PO DAILY #30 cap 04/03/24 11/04/24 Rx [Nestabs One Softgel] Omeprazole 1 tab PO DAILY 11/04/24 11/04/24 History Allergies Allergy/AdvReac Type Severity Reaction Status Date / Time No Known Allergies Allergy Verified 11/02/24 09:21 Exam Vital Signs Temp Pulse Resp BP Pulse Ox 11/04/24 02:38 97.3 F L 92 16 142/77 98 11/04/24 02:36 97.3 F L 92 16 142/77 98 Intake and Output 11/03/24 11/04/24 11/04/24 22:59 06:59 14:59 Output Total 350 Balance -350 Output: Urine 350 Other: Weight 58.967 kg In general, this is a well-developed, well-nourished white female in no acute distress. Her heart has a regular rhythm and rate without murmur. Her lungs clear to auscultation bilaterally in all muller. Her abdomen is gravid, nondistended, has normal active bowel sounds, soft, nontender, and without any palpable masses aside from the uterine fundus. Her extremities are without any cyanosis, clubbing, or edema and are nontender to palpation bilaterally. Digital cervical examination demonstrates her cervix to be approximately 6 cm dilated, 90% effaced, with the vertex and presentation at -1 station. Artificial rupture of membranes is carried out demonstrating clear fluid. Results Result Diagrams: 11/04/24 02:44 Abnormal Lab Results - Last 24 Hours (Table) 11/04/24 Range/Units 02:44 WBC 13.91 H (4.50-10.00) 10*3/uL RBC 4.04 L (4.10-5.20) 10*6/uL Hct 36.4 L (37.2-46.3) % Immature Gran # 0.06 H (0.00-0.04) 10*3/uL Neutrophils # 9.50 H (1.80-7.70) 10*3/uL Assessment and Plan (1) Active labor at term Current Visit: Yes Status: Acute Code(s): SML3622 - SNOMED Code(s): 37389275 Plan: The patient has been admitted for active management of labor. She will have close maternal surveillance and expectant management we will be practiced. An epidural catheter has been placed for analgesia. She has undergone artificial rupture of membranes. Should she make no progress over the next hour or 2, Pitocin augmentation will be added.
[2024-11-04] MEDS: OXYTOCIN 30 UNITS/500 ML NS 30 UNIT in SALINE 1 500ML.BAG IV SCH (11:23)
--- NOTE | 2024-11-04 11:50 | P.MSEPDOC ---
Presenting Problems - Arrival Data Date of Arrival on Unit: 11/04/24 Time of Arrival on Unit: 02:36 Mode of Transport: Ambulatory - Complaint OB-Reason for Admission/Chief Complaint: Possible Onset of Labor Comment: Contrations starting at 2330, now 2 minutes apart. Medical History - Information : 2 Para: 0 Term: 0 : 0 Abortions: Spontaneous or Elective: 1 Number of Living Children: 0 - Gestational Age Gestational Age by RAMY (wks/days): 37 Weeks and 2 Days Review of Systems - Review of Systems Constitutional: No problems Breast: No problems ENT: No problems Cardiovascular: No problems Respiratory: No problems Gastrointestinal: No problems Genitourinary: No problems Musculoskeletal: No problems Neurological: No problems Skin: No problems Vital Signs - Temperature Temperature: 97.3 F Temperature Source: Temporal Artery Scan - Pulse Pulse Oximetery Pulse Rate: 92 Pulse Assessment Method: Pulse Oximetry - Respirations Respiratory Rate: 16 Oxygen Delivery Method: Room Air O2 Sat by Pulse Oximetry: 98 - Blood Pressure Right Arm Blood Pressure: 142/77 Blood Pressure Mean: 98 Blood Pressure Source: Automatic Cuff Medical Screen Scoring - Cervical Exam Dilation (cm): 4 Effacement (%): 80 Station: -2 Membranes: Intact - Uterine Contractions Frequency From (mins): 2 Frequency To (mins): 3 Duration From (seconds): 40 Duration To (seconds): 60 Intensity: Moderate Resting: Soft to palpation - Assessment - Baby A Baseline FHR: 135 Heart Rate - NICHD Category: Category I (Normal) Physician Notification - Physician Notified Physician Notified Date: 11/04/24 Physician Notified Time: 02:33 Physician: Ethan Salcido New Order Received: Yes - Notification Comment Comment: Dr. Salcido called at home, notified of pt status, GA, G/P, VSS, CAT 1 FHT, contraction pattern, cervical change after 30 minutes. Orders to admit pt for labor, epidural if pt wants. Maternal Triage Index - Maternal Triage Index Presenting for scheduled procedure w/no complaint: No - Stat/Priority 1 Stat Priority 1: No - Urgent/Priority 2 Urgent Priority 2: No - Prompt/Priority 3 Prompt Priority 3: No - Non-Urgent/Priority 4 Non-Urgent Priority 4: Yes Criteria Met for Priority 4: 37 2/7 weeks, Contractions every 2 minutes Disposition - Disposition OB Disposition: Admit, LDRP Suite I agree with the RN Medical Screening Exam: Yes Case reviewed; plan agreed upon as documented in EMR&OBIX.: Yes Diagnosis: ENCOUNTER FOR FULL-TERM UNCOMPLICATED DELIVERY
[2024-11-04] MEDS: LIDOCAINE 0.5% (PF) 5 MG/ML (50 ML SDV) SQ PRN (13:56)
[2024-11-04] MEDS ORDERED: diphenhydrAMINE 50 MG/ML 1 ML VIAL IVP PRN ×2 (14:13)
[2024-11-04] MEDS ORDERED: BENZOCAINE/MENTHOL SPRAY 1 GM/SPRAY AEROSOL TOPICAL PRN (14:13)
[2024-11-04] MEDS ORDERED: diphenhydrAMINE 50 MG CAP PO PRN (14:13)
[2024-11-04] MEDS ORDERED: HYDROCORTISONE 2.5% RECTAL CREAM 30 GM TUBE RECTAL PRN (14:13)
[2024-11-04] MEDS ORDERED: LANOLIN CREAM 1 GM TUBE TOPICAL PRN (14:13)
[2024-11-04] MEDS ORDERED: diphenhydrAMINE 25 MG CAP PO PRN (14:13)
[2024-11-04] MEDS ORDERED: ZOLPIDEM 5 MG TAB PO PRN (14:13)
[2024-11-04] MEDS ORDERED: OXYTOCIN 30 UNITS/500 ML NS 30 UNIT in SALINE 1 500ML.BAG IV SCH (14:15)
--- NOTE | 2024-11-04 14:18 | P.PROBDLV ---
Vaginal Delivery Note - . Vaginal Delivery Note: The patient is a 19-year-old 2 para 0-0-1-0 admitted at 37-2/7 weeks by good dating parameters. She is admitted in early active labor with all signs reassuring, category 1 heart rate tracing. Her has been essentially uncomplicated though she was found to have a baby growing at just above the 10th percentile in the third trimester. testing was reassuring on a weekly basis thereafter. Group B strep status is negative. On labor and delivery, she had an epidural catheter placed for analgesia. She made some progress and underwent artificial rupture of membranes for clear fluid. Pitocin augmentation was added and she progressed fairly quickly then to complete. She pushed over the course of approximately 20 minutes to a normal spontaneous vaginal delivery of a viable 6 pound 0.5 ounce baby boy with Apgars of 8 at 1 minute and 9 at 5 minutes delivered in the right occiput anterior position. The placenta was delivered spontaneously, intact, and grossly normal with a grossly normal though what appeared to be velamentously and marginally inserted cord was noted which was lacerated during delivery of the placenta. There was a small first-degree midline perineal laceration which was repaired as it was gaping slightly with 3-0 chromic catgut without difficulty. Estimated blood loss for the case was approximately 100 mL. There were no complications. All sponge, instrument, and needle counts were correct. Both mother and are resting comfortably in recovery.
[2024-11-04] MEDS: IBUPROFEN 800 MG TAB PO PRN (15:33)
[2024-11-04 16:36] VITALS: RESP 16
[2024-11-04] MEDS: ACETAMINOPHEN TAB 500 MG TAB PO PRN (19:21)
[2024-11-04] MEDS: SENNOSIDES-DOCUSATE SODIUM 1 EACH TAB PO SCH (19:23)
[2024-11-05 04:22] LABS: Basophils # (A) 0.05 10*3/uL (0.00-0.10); Basophils % (A) 0.4 %; Eosinophils % (A) 1.7 %; HCT 33.2 % (37.2-46.3); HGB 11.5 g/dL (12.0-15.0); Lymphocytes # (A) 2.92 10*3/uL (0.90-5.00); Lymphocytes % (A) 25.2 %; MCH 31.3 pg (27.0-32.0); MCHC 34.6 g/dL (32.0-37.0); MCV 90.5 fL (80.0-97.0); Mean Platelet Volume 10.1 fL (9.5-12.2); Monocytes # (A) 0.72 10*3/uL (0.20-1.00); Monocytes % (A) 6.2 %; Neutrophils # (A) 7.66 10*3/uL (1.80-7.70); Neutrophils % (A) 66.2 %; Platelet Count 233 10*3/uL (140-440); RBC 3.67 10*6/uL (4.10-5.20); RDW 12.9 % (11.5-14.5); WBC 11.59 10*3/uL (4.50-10.00)
[2024-11-05] MEDS: SIMETHICONE 80 MG CHEWABLE PO PRN (04:43)
[2024-11-05 09:11] VITALS: BP 122/76; PULSE 70; TEMP 98
--- NOTE | 2024-11-05 10:04 | P.DS ---
Providers Date of admission: 11/04/24 02:36 Expected date of discharge: 11/05/24 Attending physician: Ethan Salcido Primary care physician: Stated None - Discharge Diagnosis(es) (1) Active labor at term Current Visit: Yes Status: Acute (2) Normal spontaneous vaginal delivery Current Visit: Yes Status: Acute Hospital Course: Patient is a 19-year-old 2 para 0-0-1-0 admitted at 37-2/7 weeks by good dating parameters. She is admitted in early active labor with all signs reassuring, category 1 heart rate tracing. Her has been uncomplicated though she did have a small for gestational age baby with weekly testing after the diagnosis reassuring. Group B strep status is negative. On labor and delivery, she had an epidural catheter placed for analgesia and underwent artificial rupture of membranes for clear fluid. She then progressed with Pitocin augmentation to complete and pushed fairly quickly to a normal spontaneous vaginal delivery of a viable 6 pound 0.5 ounce baby boy with Apgars of 8 at 1 minute and 9 at 5 minutes. Her course was unremarkable with vital signs remaining stable and her temperature was afebrile throughout. She was deemed stable for discharge on day #1 and was discharged home to follow-up in the office in 6 weeks time routinely. Discharge instructions included calling for any significantly increased bleeding or foul- smelling lochia, significantly increased fever abdominal pain, perineal com plaints, breast complaints, or anything else that concerned her. She was additionally instructed to have nothing in the vagina for at least 6 weeks time to include intercourse. She understood her instructions and agrees to follow-up as noted above. Discharge medications included continued vitamins as she has opted to breast-feed. She was otherwise to use [id number] analgesic pain medications as needed. Maternal blood type is A+ and rubella status is immune. Procedures: #1. Epidural analgesia #2. Artificial rupture of membranes #3. Pitocin augme ntation #4. Normal spontaneous vaginal delivery #5. Repair of first-degree perineal laceration Patient Condition at Discharge: Stable Plan - Discharge Summary New Discharge Prescriptions: No Action Multivit No.42/Iron/Folate/Dha [Nestabs One Softgel] 1 each PO DAILY #30 cap Omeprazole 1 tab PO DAILY Discharge Medication List Multivit No.42/Iron/Folate/Dha [Nestabs One Softgel] 1 each PO DAILY #30 cap 04/03/24 [Rx] Omeprazole 1 tab PO DAILY 11/04/24 [History] Follow up Appointment(s)/Referral(s): Ethan Salcido MD [STAFF PHYSICIAN] - 6 Weeks Discharge Disposition: HOME SELF-CARE
== END 2024-11-05 15:45 | disposition home or self-care (01) | DRG 560 ==
LOC: FBPOP 01:55 → 4FBP 02:36
PROVIDERS: ADMIT Obstetrics & Gynecology; ATTEND Obstetrics & Gynecology
PROC: 10907ZC Drainage of Amniotic Fluid, Therapeutic from Products of Conception, Via Natural or Artificial Opening (ICD-10-PCS; principal; 2024-11-04)
PROC: 10E0XZZ Delivery of Products of Conception, External Approach (ICD-10-PCS; principal; 2024-11-04)
PROC: 0HQ9XZZ Repair Perineum Skin, External Approach (ICD-10-PCS; principal; 2024-11-04)
DX: O36.5930 Maternal care for other known or suspected poor fetal growth, third trimester, not applicable or unspecified (principal); O70.0 First degree perineal laceration during delivery; Z37.0 Single live birth; Z3A.37 37 weeks gestation of pregnancy
CPT/HCPCS: 85025; 86850; 86900; 86901; 99213